=== PATIENT | female | born 1945 | race Caucasian/White ===

== ENCOUNTER 2018-06-21 12:55 | Inpatient (IN) ==
--- NOTE | 2018-06-21 13:21 | Emergency Department Note ---
Disposition Clinical Impression: Pleural effusion Altered mental status Qualifiers: Altered mental status type: unspecified Qualified Code(s): R41.82 - Altered mental status, unspecified Disposition: Admitted As Inpatient Condition: Fair Referrals: Barney Urena MD [Primary Care Provider] - Forms: ED Satisfaction Letter Time of Disposition: 14:44 General Adult HPI - General Chief complaint: ED Altered Mental Status Stated complaint: AMS/unresponsive Time Seen by Provider: 06/21/18 12:58 Source: EMS Mode of arrival: EMS Limitations: altered mental status Nursing Notes Reviewed: Yes Vital Signs Reviewed: Yes - History of Present Illness HPI Narrative: 72-year-old female with significant past medical history of AV fistula to the right arm and kidney transplant presenting to the emergency Department chief complaint of altered mental status. According to EMS patient is normally much more interactive. They picked her up from a intermediate facility. Nurse on that day stated that she has been altered since this morning. Unknown if she was altered last evening. Patient only responsive to pain in the room. Unable to provide any history of present illness. Pain Scale: 0 - Related Data Home Medications Medication Instructions Recorded Confirmed Aspirin 81 mg PO DAILY 09/13/15 05/12/18 Cyclosporine, Modified [Neoral] 100 mg PO BID 09/13/15 05/12/18 Metoprolol [Lopressor] 50 mg PO BID 09/13/15 05/12/18 Simvastatin [Zocor] 40 mg PO HS 09/13/15 05/12/18 Sirolimus [Rapamune] 1 mg PO DAILY 09/13/15 05/12/18 ALPRAZolam [Xanax 0.5 MG Tablet] 0.5 mg PO DAILY 04/28/18 05/12/18 Doxepin HCl 100 mg PO HS 04/28/18 05/12/18 Escitalopram [Lexapro] 20 mg PO DAILY 04/28/18 05/12/18 Nicotine Patch [Nicoderm] 21 mg TD DAILY 04/28/18 05/12/18 Trazodone HCl 200 mg PO HS 04/28/18 05/12/18 Previous Rx's Medication Instructions Recorded Amoxicillin/Clavulanate [Augmentin] 500 mg PO BIDWM #14 tablet 05/12/18 Allergies Allergy/AdvReac Type Severity Reaction Status Date / Time No Known Allergies Allergy Verified 05/12/18 08:29 Limitations: ROS unobtainable due to patients medical condition Past Medical History - Past Medical History Medical history: Reports: COPD, hyperlipidemia, hypertension, renal disease, thyroid disease, other Surgical history: Reports: transplant Psychiatric history: Reports: anxiety, bipolar, depression COP BREAKER history: Reports: no COP BREAKER history - Social History Smoking Status: Current every day smoker Smokeless Tobacco Status: No Alcohol use: Reports: none Drug use: Reports: none Physical Exam - General Limitations: altered mental status General appearance: obtunded - Head Head exam: atraumatic, normocephalic, normal inspection - Eye Eye exam: Present: PERRL. Absent: scleral icterus, conjunctival injection - ENT ENT exam: mucous membranes dry - Neck Neck exam: Present: normal inspection, trachea midline - Chest Chest inspection: Present: normal inspection, symmetric chest wall rise. Absent : rash - Respiratory Respiratory exam: Present: other (decreased breath sounds bilaterally) - Cardiovascular Cardiovascular exam: Present: regular rate, normal rhythm, normal heart sounds - Abdominal Exam Abdominal exam: Present: distention. Absent: guarding, rebound, rigidity - Extremities Exam Extremities exam: Present: other (2+ pitting edema bilateral lower extremities) - Skin Skin exam: Present: dry Course Course Narrative: 72-year-old female presenting for altered mental status. Patient only responsive to pain. Concern for sepsis, intracranial abnormality, abdominal abnormality. Patient afebrile on exam. Patient's abdomen on exam is slightly distended. Patient unable to provide any information. We will perform CT of the head, chest, abdomen and pelvis. We will perform basic laboratory analysis including UA and blood cultures. Patient is stable at this time. Vital signs stable. Disposition most likely admission but pending results. - Reevaluation(s) Reevaluation #1: Patient's laboratory analysis shows mild hyponatremia otherwise at baseline. Her CT of the chest shows bilateral large pleural effusions. Also anasarca. This is consistent with physical exam is patient has 2+ pitting edema bilateral lower extremities. We will provide the patient with 40 mg Lasix at this time and plan to admit her for her bilateral pleural effusions and altered mental status. I spoke with the hospitalist on-call Aleksey Puentes who agrees to accept the patient at this time. Vital Signs Temperature 98 F 06/21/18 13:07 Pulse Rate 73 06/21/18 13:07 Respiratory Rate 18 06/21/18 13:07 Blood Pressure 112/61 06/21/18 13:07 O2 Sat by Pulse Oximetry 98 06/21/18 13:07 Temperature 98 F 06/21/18 13:07 Pulse Rate 73 06/21/18 13:07 Respiratory Rate 18 06/21/18 13:07 Blood Pressure 112/61 06/21/18 13:07 O2 Sat by Pulse Oximetry 98 06/21/18 13:20 Oxygen Delivery Oxygen Delivery Room Air Medical Decision Making - Lab Data Result diagrams: 06/21/18 13:11 06/21/18 13:11 Lab Results 06/21/18 06/21/18 06/21/18 Range/Units 13:11 13:11 13:11 WBC 5.6 (4.3-11.1) K/mcL RBC 3.62 L (3.82-4.97) M/mcL Hgb 10.7 L (11.5-15.4) g/dL Hct 35.9 (35.3-44.9) % MCV 99.2 (83.0-100.0) fL MCH 29.6 (28.0-33.3) pg MCHC 29.8 L (31.6-35.5) g/dL RDW 17.9 H (11.5-14.5) % Plt Count 241 (140-400) K/mcL MPV 11.0 (9.4-12.4) fL Immature Gran % 2.9 (0-4) % Seg Neutrophils % 84.3 % Lymphocytes % 3.4 % Monocytes % 7.9 % Eosinophils % 1.1 % Basophils % 0.4 % Neutrophils # 4.7 (1.6-8.9) K/mcL Lymphocytes # 0.2 L (0.6-4.6) K/mcL Monocytes # 0.4 (0.0-1.3) K/mcL Eosinophils # 0.1 (0.0-0.6) K/mcL Basophils # 0.0 (0.0-0.2) K/mcL Platelet Estimate Normal (Normal) Basophilic Stippling 1+ A (Not Present) Anisocytosis 1+ A (Not Present) PT 10.6 (9.4-12.1) Seconds INR 0.9 APTT 31.9 (26.0-36.0) Seconds Sodium 131 L (136-145) mEq/L Potassium 4.7 (3.5-5.1) mEq/L Chloride 97 L (98-107) mEq/L Carbon Dioxide 29 (23-29) mEq/L BUN 25 H (8-23) mg/dL Creatinine 1.38 H (0.60-1.20) mg/dL Est GFR ( Amer) 46 L (> 60) Est GFR (Non-Af Amer) 38 L (> 60) BUN/Creatinine Ratio 18 (6-26) Glucose 102 (70-105) mg/dL Calculated Osmolality 277 L (280-300) Lactic Acid (0.5-2.2) mmol/L Calcium 8.6 (8.6-10.3) mg/dL Magnesium 1.8 (1.6-2.6) mg/dL Total Bilirubin 0.6 (0.3-1.0) mg/dL Direct Bilirubin 0.2 (0.0-0.2) mg/dL Indirect Bilirubin 0.4 (0.0-1.2) mg/dL AST 15 (13-39) Units/L ALT 14 (7-52) Units/L Alkaline Phosphatase 122 H (34-104) Units/L Troponin I < 0.03 (< 0.04) ng/mL Serum Total Protein 5.5 L (6.4-8.9) g/dL Albumin 2.9 L (3.5-5.7) g/dL Globulin 2.6 (2.4-3.5) g/dL Albumin/Globulin Ratio 1.1 (1.1-2.2) Urine Color (Yellow) Urine Clarity (Clear) Urine pH (5.0-8.0) pH Units Ur Specific [place] (1.010-1.025) Urine Protein (Neg-Trace) mg/dL Urine Glucose (UA) (Normal) mg/dL Urine Ketones (Negative) mg/dL Urine Blood (Negative) Urine Nitrite (Negative) Urine Bilirubin (Negative) Urine Urobilinogen (Normal) mg/dL Ur Leukocyte Esterase (Negative) Urine Microscopic RBC (0-3) per hpf Urine Microscopic WBC (0-3) per hpf Ur Squamous Epith Cells (None-Few) per lpf Urine Bacteria (None-Few) per hpf Ur Culture Indicated? (NO) 06/21/18 06/21/18 Range/Units 13:11 13:16 WBC (4.3-11.1) K/mcL RBC (3.82-4.97) M/mcL Hgb (11.5-15.4) g/dL Hct (35.3-44.9) % MCV (83.0-100.0) fL MCH (28.0-33.3) pg MCHC (31.6-35.5) g/dL RDW (11.5-14.5) % Plt Count (140-400) K/mcL MPV (9.4-12.4) fL Immature Gran % (0-4) % Seg Neutrophils % % Lymphocytes % % Monocytes % % Eosinophils % % Basophils % % Neutrophils # (1.6-8.9) K/mcL Lymphocytes # (0.6-4.6) K/mcL Monocytes # (0.0-1.3) K/mcL Eosinophils # (0.0-0.6) K/mcL Basophils # (0.0-0.2) K/mcL Platelet Estimate (Normal) Basophilic Stippling (Not Present) Anisocytosis (Not Present) PT (9.4-12.1) Seconds INR APTT (26.0-36.0) Seconds Sodium (136-145) mEq/L Potassium (3.5-5.1) mEq/L Chloride (98-107) mEq/L Carbon Dioxide (23-29) mEq/L BUN (8-23) mg/dL Creatinine (0.60-1.20) mg/dL Est GFR ( Amer) (> 60) Est GFR (Non-Af Amer) (> 60) BUN/Creatinine Ratio (6-26) Glucose (70-105) mg/dL Calculated Osmolality (280-300) Lactic Acid 0.5 (0.5-2.2) mmol/L Calcium (8.6-10.3) mg/dL Magnesium (1.6-2.6) mg/dL Total Bilirubin (0.3-1.0) mg/dL Direct Bilirubin (0.0-0.2) mg/dL Indirect Bilirubin (0.0-1.2) mg/dL AST (13-39) Units/L ALT (7-52) Units/L Alkaline Phosphatase (34-104) Units/L Troponin I (< 0.04) ng/mL Serum Total Protein (6.4-8.9) g/dL Albumin (3.5-5.7) g/dL Globulin (2.4-3.5) g/dL Albumin/Globulin Ratio (1.1-2.2) Urine Color Yellow (Yellow) Urine Clarity Cloudy A (Clear) Urine pH 5.0 (5.0-8.0) pH Units Ur Specific [place] 1.025 (1.010-1.025) Urine Protein >=1000 H (Neg-Trace) mg/dL Urine Glucose (UA) Normal (Normal) mg/dL Urine Ketones Negative (Negative) mg/dL Urine Blood Negative (Negative) Urine Nitrite Negative (Negative) Urine Bilirubin Small H (Negative) Urine Urobilinogen Normal (Normal) mg/dL Ur Leukocyte Esterase Negative (Negative) Urine Microscopic RBC 0-3 (0-3) per hpf Urine Microscopic WBC 3-5 H (0-3) per hpf Ur Squamous Epith Cells Many H (None-Few) per lpf Urine Bacteria None Seen (None-Few) per hpf Ur Culture Indicated? NO (NO) - EKG Data EKG #1 EKG attestation: Yes I reviewed and interpreted this EKG. EKG results narrative: Sinus rhythm. 73 beats for minute. WI interval 169, QRS 109, QTc 442. No signs of acute ST segment elevation or ischemia.
[2018-06-21 13:24] LABS: Bilirubin,Urine Small (Negative); Blood,Urine Negative (Negative); Clarity,Urine Cloudy (Clear); Color,Urine Yellow (Yellow); Glucose,Urine (UA) Normal (Normal); Ketones,Urine Negative (Negative); Leukocyte Esterase,Urine Negative (Negative); Nitrite,Urine Negative (Negative); Protein,Urine >=1000 mg/dL (Neg-Trace); Specific Gravity,Urine 1.025 (1.010-1.025); Urobilinogen,Urine Normal (Normal)
[2018-06-21 13:25] LABS: Basophils % 0.4 %; Eosinophils # 0.1 K/mcL (0.0-0.6); Eosinophils % 1.1 %; Hematocrit 35.9 % (35.3-44.9); Hemoglobin 10.7 g/dL (11.5-15.4); Immature Granulocytes % 2.9 % (0-4); Lymphocytes # 0.2 K/mcL (0.6-4.6); Lymphocytes % 3.4 %; Mean Corpuscular HGB Conc 29.8 g/dL (31.6-35.5); Mean Corpuscular Hemoglobin 29.6 pg (28.0-33.3); Mean Corpuscular Volume 99.2 fL (83.0-100.0); Monocytes # 0.4 K/mcL (0.0-1.3); Monocytes % 7.9 %; Neutrophils # 4.7 K/mcL (1.6-8.9); Platelet Count 241 K/mcL (140-400); Red Blood Count 3.62 M/mcL (3.82-4.97); Red Cell Distribution Width 17.9 % (11.5-14.5); Segmented Neutrophils % 84.3 %
[2018-06-21 13:26] LABS: Bacteria,Urine None Seen per hpf (None-Few); RBC,Urine 0-3 per hpf (0-3); Squamous Epithelial Cell,Urine Many per lpf (None-Few)
[2018-06-21 13:31] LABS: INR 0.9; Prothrombin Time 10.6 Seconds (9.4-12.1)
[2018-06-21 13:34] LABS: Activated Partial Thrombo Time 31.9 Seconds (26.0-36.0)
[2018-06-21 13:49] LABS: Alanine Aminotransferase 14 Units/L (7-52); Albumin 2.9 g/dL (3.5-5.7); Albumin/Globulin Ratio 1.1 (1.1-2.2); Alkaline Phosphatase 122 Units/L (34-104); Aspartate Amino Transferase 15 Units/L (13-39); BUN/Creatinine Ratio 18 (6-26); Bilirubin,Direct 0.2 mg/dL (0.0-0.2); Bilirubin,Indirect 0.4 mg/dL (0.0-1.2); Bilirubin,Total 0.6 mg/dL (0.3-1.0); Blood Urea Nitrogen 25 mg/dL (8-23); Calcium 8.6 mg/dL (8.6-10.3); Carbon Dioxide 29 mEq/L (23-29); Chloride 97 mEq/L (98-107); Globulin 2.6 g/dL (2.4-3.5); Glucose 102 mg/dL (70-105); Magnesium 1.8 mg/dL (1.6-2.6); Osmolality,Calculated 277 (280-300); Potassium 4.7 mEq/L (3.5-5.1); Sodium 131 mEq/L (136-145); Total Protein 5.5 g/dL (6.4-8.9); eGFR For Non-African Americans 38 (> 60)
[2018-06-21 13:51] LABS: Troponin I < 0.03 ng/mL (< 0.04)
[2018-06-21 14:08] LABS: Anisocytosis 1+ (Not Present)
[2018-06-21 14:09] LABS: Basophilic Stippling 1+ (Not Present); Platelet Estimate Normal (Normal)
[2018-06-21] MEDS ORDERED: Furosemide 40 MG/4 ML VIAL IVP ONE (14:42)
--- NOTE | 2018-06-21 15:06 | Emergency Department Note ---
Disposition Clinical Impression: Pleural effusion Altered mental status Qualifiers: Altered mental status type: unspecified Qualified Code(s): R41.82 - Altered mental status, unspecified Disposition: Admitted As Inpatient Condition: Fair Time of Disposition: 15:06 General Adult HPI - General Chief complaint: ED Altered Mental Status Stated complaint: AMS/unresponsive Time Seen by Provider: 06/21/18 12:58 Source: EMS Mode of arrival: EMS Limitations: altered mental status - History of Present Illness Pain Scale: 0 - Related Data Home Medications Medication Instructions Recorded Confirmed Aspirin 81 mg PO DAILY 09/13/15 05/12/18 Cyclosporine, Modified [Neoral] 100 mg PO BID 09/13/15 05/12/18 Metoprolol [Lopressor] 50 mg PO BID 09/13/15 05/12/18 Simvastatin [Zocor] 40 mg PO HS 09/13/15 05/12/18 Sirolimus [Rapamune] 1 mg PO DAILY 09/13/15 05/12/18 ALPRAZolam [Xanax 0.5 MG Tablet] 0.5 mg PO DAILY 04/28/18 05/12/18 Doxepin HCl 100 mg PO HS 04/28/18 05/12/18 Escitalopram [Lexapro] 20 mg PO DAILY 04/28/18 05/12/18 Nicotine Patch [Nicoderm] 21 mg TD DAILY 04/28/18 05/12/18 Trazodone HCl 200 mg PO HS 04/28/18 05/12/18 Previous Rx's Medication Instructions Recorded Amoxicillin/Clavulanate [Augmentin] 500 mg PO BIDWM #14 tablet 05/12/18 Allergies Allergy/AdvReac Type Severity Reaction Status Date / Time No Known Allergies Allergy Verified 05/12/18 08:29 Past Medical History - Past Medical History Medical history: Reports: COPD, hyperlipidemia, hypertension, renal disease, thyroid disease, other Surgical history: Reports: transplant Psychiatric history: Reports: anxiety, bipolar, depression BIOLOG[employer] INTERNSHIP history: Reports: no [employer] INTERNS[employer]IP history - Social History Smoking Status: Current every day smoker Smokeless Tobacco Status: No Alcohol use: Reports: none Drug use: Reports: none Physical Exam - General Limitations: altered mental status General appearance: obtunded Course Vital Signs Temperature 98 F 06/21/18 13:07 Pulse Rate 73 06/21/18 13:07 Respiratory Rate 18 06/21/18 13:07 Blood Pressure 112/61 06/21/18 13:07 O2 Sat by Pulse Oximetry 98 06/21/18 13:07 Temperature 98 F 06/21/18 13:07 Pulse Rate 76 06/21/18 14:57 Respiratory Rate 18 06/21/18 14:57 Blood Pressure 110/70 06/21/18 14:57 O2 Sat by Pulse Oximetry 99 06/21/18 14:57 Oxygen Delivery Oxygen Delivery Nasal Cannula Medical Decision Making - Lab Data Result diagrams: 06/21/18 13:11 06/21/18 13:11 Lab Results 06/21/18 06/21/18 06/21/18 Range/Units 13:11 13:11 13:11 WBC 5.6 (4.3-11.1) K/mcL RBC 3.62 L (3.82-4.97) M/mcL Hgb 10.7 L (11.5-15.4) g/dL Hct 35.9 (35.3-44.9) % MCV 99.2 (83.0-100.0) fL MCH 29.6 (28.0-33.3) pg MCHC 29.8 L (31.6-35.5) g/dL RDW 17.9 H (11.5-14.5) % Plt Count 241 (140-400) K/mcL MPV 11.0 (9.4-12.4) fL Immature Gran % 2.9 (0-4) % Seg Neutrophils % 84.3 % Lymphocytes % 3.4 % Monocytes % 7.9 % Eosinophils % 1.1 % Basophils % 0.4 % Neutrophils # 4.7 (1.6-8.9) K/mcL Lymphocytes # 0.2 L (0.6-4.6) K/mcL Monocytes # 0.4 (0.0-1.3) K/mcL Eosinophils # 0.1 (0.0-0.6) K/mcL Basophils # 0.0 (0.0-0.2) K/mcL Platelet Estimate Normal (Normal) Basophilic Stippling 1+ A (Not Present) Anisocytosis 1+ A (Not Present) PT 10.6 (9.4-12.1) Seconds INR 0.9 APTT 31.9 (26.0-36.0) Seconds Sodium 131 L (136-145) mEq/L Potassium 4.7 (3.5-5.1) mEq/L Chloride 97 L (98-107) mEq/L Carbon Dioxide 29 (23-29) mEq/L BUN 25 H (8-23) mg/dL Creatinine 1.38 H (0.60-1.20) mg/dL Est GFR ( Amer) 46 L (> 60) Est GFR (Non-Af Amer) 38 L (> 60) BUN/Creatinine Ratio 18 (6-26) Glucose 102 (70-105) mg/dL Calculated Osmolality 277 L (280-300) Lactic Acid (0.5-2.2) mmol/L Calcium 8.6 (8.6-10.3) mg/dL Magnesium 1.8 (1.6-2.6) mg/dL Total Bilirubin 0.6 (0.3-1.0) mg/dL Direct Bilirubin 0.2 (0.0-0.2) mg/dL Indirect Bilirubin 0.4 (0.0-1.2) mg/dL AST 15 (13-39) Units/L ALT 14 (7-52) Units/L Alkaline Phosphatase 122 H (34-104) Units/L Troponin I < 0.03 (< 0.04) ng/mL Serum Total Protein 5.5 L (6.4-8.9) g/dL Albumin 2.9 L (3.5-5.7) g/dL Globulin 2.6 (2.4-3.5) g/dL Albumin/Globulin Ratio 1.1 (1.1-2.2) Urine Color (Yellow) Urine Clarity (Clear) Urine pH (5.0-8.0) pH Units Ur Specific [place] (1.010-1.025) Urine Protein (Neg-Trace) mg/dL Urine Glucose (UA) (Normal) mg/dL Urine Ketones (Negative) mg/dL Urine Blood (Negative) Urine Nitrite (Negative) Urine Bilirubin (Negative) Urine Urobilinogen (Normal) mg/dL Ur Leukocyte Esterase (Negative) Urine Microscopic RBC (0-3) per hpf Urine Microscopic WBC (0-3) per hpf Ur Squamous Epith Cells (None-Few) per lpf Urine Bacteria (None-Few) per hpf Ur Culture Indicated? (NO) 06/21/18 06/21/18 Range/Units 13:11 13:16 WBC (4.3-11.1) K/mcL RBC (3.82-4.97) M/mcL Hgb (11.5-15.4) g/dL Hct (35.3-44.9) % MCV (83.0-100.0) fL MCH (28.0-33.3) pg MCHC (31.6-35.5) g/dL RDW (11.5-14.5) % Plt Count (140-400) K/mcL MPV (9.4-12.4) fL Immature Gran % (0-4) % Seg Neutrophils % % Lymphocytes % % Monocytes % % Eosinophils % % Basophils % % Neutrophils # (1.6-8.9) K/mcL Lymphocytes # (0.6-4.6) K/mcL Monocytes # (0.0-1.3) K/mcL Eosinophils # (0.0-0.6) K/mcL Basophils # (0.0-0.2) K/mcL Platelet Estimate (Normal) Basophilic Stippling (Not Present) Anisocytosis (Not Present) PT (9.4-12.1) Seconds INR APTT (26.0-36.0) Seconds Sodium (136-145) mEq/L Potassium (3.5-5.1) mEq/L Chloride (98-107) mEq/L Carbon Dioxide (23-29) mEq/L BUN (8-23) mg/dL Creatinine (0.60-1.20) mg/dL Est GFR ( Amer) (> 60) Est GFR (Non-Af Amer) (> 60) BUN/Creatinine Ratio (6-26) Glucose (70-105) mg/dL Calculated Osmolality (280-300) Lactic Acid 0.5 (0.5-2.2) mmol/L Calcium (8.6-10.3) mg/dL Magnesium (1.6-2.6) mg/dL Total Bilirubin (0.3-1.0) mg/dL Direct Bilirubin (0.0-0.2) mg/dL Indirect Bilirubin (0.0-1.2) mg/dL AST (13-39) Units/L ALT (7-52) Units/L Alkaline Phosphatase (34-104) Units/L Troponin I (< 0.04) ng/mL Serum Total Protein (6.4-8.9) g/dL Albumin (3.5-5.7) g/dL Globulin (2.4-3.5) g/dL Albumin/Globulin Ratio (1.1-2.2) Urine Color Yellow (Yellow) Urine Clarity Cloudy A (Clear) Urine pH 5.0 (5.0-8.0) pH Units Ur Specific [place] 1.025 (1.010-1.025) Urine Protein >=1000 H (Neg-Trace) mg/dL Urine Glucose (UA) Normal (Normal) mg/dL Urine Ketones Negative (Negative) mg/dL Urine Blood Negative (Negative) Urine Nitrite Negative (Negative) Urine Bilirubin Small H (Negative) Urine Urobilinogen Normal (Normal) mg/dL Ur Leukocyte Esterase Negative (Negative) Urine Microscopic RBC 0-3 (0-3) per hpf Urine Microscopic WBC 3-5 H (0-3) per hpf Ur Squamous Epith Cells Many H (None-Few) per lpf Urine Bacteria None Seen (None-Few) per hpf Ur Culture Indicated? NO (NO) Attestation Statement - Attestation Attestation: Interviewed and evaluated the patient on my examination and since the resident and declining evaluation. I agree with the treatment and disposition.
[2018-06-21] MEDS ORDERED: Naloxone 0.4 MG/ML INJ IVP PRN (18:24)
--- NOTE | 2018-06-21 18:50 | Internal Med History&Physical ---
<Ander Rueda - Last Filed: 06/21/18 20:15> Date of Encounter: 06/21/18 Time of Encounter: 17:30 Internal Medicine - H&P: HPI Chief complaint: AMS Admitted From: Emergency Dept Plans for Post Hospital Care: Home History of present illness: Ms. Begum is a 72 year old female w/PMH of COPD, HLD, HTN, and CKD, thyroid disease, anxiety, and bipolar depression presents in the ED with chief complaint of altered mental status. Patient is alone and altered on assessment and offers only very limited information with repeated attempts. Patient appears somnolent and hard to arouse. Patient is alert and oriented 0. Patient does state she is a resident of an ECF. Otherwise appears obtunded. Patient protecting airway and vital signs of 98.0F temp via axilla, 73 HR, 18 RR , 112/61 BP, and SPO2 98% on 3 L via nasal cannula. Pt. denies CP, SOB, headache , fall, blacking out, or striking head. Past Med Surg Social Fam HX - Past Medical History Source: old records reviewed Medical history: COPD, hyperlipidemia, hypertension, renal disease, thyroid disease, other Additional medical history: kidney transplant, malignant neoplasm upper lobe lung Psychiatric history: anxiety, bipolar, depression - Past Surgical History Surgical History: transplant - Social History Smoking Status: Current every day smoker Smokeless Tobacco Status: No Alcohol use: none Drug use: none Current living situation: [facility] Recent Out of Country Travel Within the Last 8 Weeks: No Exposure or Possible Exposure to Illness During Travel: No Internal Medicine - H&P: Meds Aspirin 81 mg PO DAILY 09/13/15 [History] Cyclosporine, Modified [Neoral] 100 mg PO BID 09/13/15 [History] ARIPiprazole [Abilify] 10 mg PO DAILY 06/21/18 [History] Doxepin HCl 100 mg PO HS 06/21/18 [History] Escitalopram [Lexapro] 20 mg PO DAILY 06/21/18 [History] Levothyroxine [Synthroid] 25 mcg PO 0630 06/21/18 [History] Pravastatin Sodium [Pravachol] 20 mg PO HS 06/21/18 [History] Sirolimus [Rapamune] 1 mg PO DAILY 06/21/18 [History] Sulfamethoxazole/Trimeth DS [Bactrim DS] 1 tab PO MOWEFR 06/21/18 [History] Trazodone HCl 300 mg PO HS 06/21/18 [History] amLODIPine [Norvasc] 5 mg PO DAILY 06/21/18 [History] hydrOXYzine HCl [Hydroxyzine HCl] 50 mg PO Q6H PRN 06/21/18 [History] 3 Allergy/AdvReac Type Severity Reaction Status Date / Time No Known Allergies Allergy Verified 05/12/18 08:29 ROS unobtainable: due to mental status All Systems PM: A 10-system review of systems was performed and is negative for pertinent findings except as documented above in the HPI. - Constitutional Vitals: Temp Pulse Resp BP Pulse Ox 97.4 F L 73 19 104/64 97 06/21/18 16:04 06/21/18 16:04 06/21/18 16:04 06/21/18 16:04 06/21/18 16:04 General appearance: Present: A&O X 0 - Head Head exam: Present: atraumatic, normocephalic - Eye Eye exam: Present: PERRL, conjuntiva pink, sclera anicteric Pupils: Present: PERRL - ENT ENT exam: Present: normal exam - Neck Neck exam general surgery: Present: normal inspection, supple, trachea midline. Absent: lymphadenopathy - Respiratory Respiratory exam: Present: accessory muscle use, wheezes. Absent: rales, rhonchi - Cardiovascular Cardiovascular exam: Present: RRR, +S1, +S2. Absent: diastolic murmur, gallop, rubs, systolic murmur - GI/Abdominal GI/Abdominal exam: Present: normal bowel sounds, soft, no peritoneal signs. Absent: distended, tenderness - Rectal Rectal exam: Present: deferred - Additional comments: exam deferred. - Extremities Exam Extremities exam: Present: warm, radial pulses palpable and symmetrical. Absent : calf tenderness, cyanotic, pedal edema - Neurological Exam Neurological exam: Present: altered - Skin Skin exam: Present: dry, intact Internal Med - H&P Results - Labs CBC & Chem 7: 06/21/18 13:11 06/21/18 13:11 - Assessment and plan (1) Altered mental status Current Visit: Yes Status: Acute Assessment and plan: Acute AMS on admission. Pt. appears somnolent on exam and hard to arouse. Will open eyes briefly to give brief yes or no answer then returns to somnolence. Unclear if current sx are d/t medications, possible CVA, or infection process. CT of the head shows no acute intracranial abnormality, bilateral mastoid effusions, and age-related changes including chronic small vessel ischemic disease and cerebral atrophy. Pt. has hx of alcoholism and previous documents state she was 14 years sober. Blood alcohol level ordered. Urine tox screen ordered. NPO status. Dysphagia screen when A&O. Hold PO medications until mentation changes. Blood cultures x2 ordered. ABG ordered stat. MRI of head/ brain ordered to r/o CVA. BG ordered. Continuous cardiac monitoring. Supplemental O2 with titration and SPO2 monitoring. Pt. is resident of [facility] so concern for HCAP d/t LLL consolidation on CXR. U/A not indicative for UTI. Legionella and strep pneumoniae antigens ordered. IVPB Zosyn and vancomycin ordered for HCAP infection coverage with renal dosing per pharmacy. Monitor pt. and f/u labs. Pt. discussed w/Dr. Puentes who agrees w/plan of care. Pt. is high risk for further morbidity based on AMS of unknown etiology, A&O x0 status , possible infection status from HCAP according to imaging, hx, and risk factors. Observation. Qualifiers: Altered mental status type: somnolence Qualified Code(s): R40.0 - Somnolence (2) Pleural effusion Current Visit: Yes Status: Acute Assessment and plan: Acute and large bilateral pleural effusions with adjacent compressive atelectasis as seen on CTA of chest today. Groundglass opacities in the aerated right lung are favored to represent sequela of edema rather than infection. Pt. given 40 mg IVP lasix in ED. Will follow w/three more doses IVP 40 mg lasix (one tomorrow in a.m. and one in p.m. followed by one dose Tuesday if warranted). Supplemental O2 with titration and SPO2 monitoring. (3) SOB (shortness of breath) Current Visit: Yes Status: Acute Assessment and plan: Acute SOB on exam as determined by accessory muscle use. Latest VS: Temp of 98.7F, HR of 86, RR of 15, BP 118/75, SPO2 94% on RA. Stat ABG ordered. Supplemental O2 w/titration and SpO2 monitoring. Monitor closely. (4) HTN (hypertension) Current Visit: Yes Status: Chronic Assessment and plan: Hx of chronic HTN. Monitor pt. and VS. Hold PO medications and order Hydralazine IVP PRN w/parameters if warranted. Currently, pt. is hypotensive. Monitor. Qualifiers: Hypertension type: essential hypertension Qualified Code(s): I10 - Essential (primary) hypertension (5) HLD (hyperlipidemia) Current Visit: Yes Status: Chronic Assessment and plan: Hx of chronic HLD. Lipid panel in a.m. labs. Hold statin d/t current AMS and NPO status. Continue when pt. A&O. Qualifiers: Hyperlipidemia type: pure hypercholesterolemia Qualified Code(s): E78.00 - Pure hypercholesterolemia, unspecified; E78.0 - Pure hypercholesterolemia (6) CKD (chronic kidney disease) stage 3, GFR 30-59 ml/min Current Visit: Yes Status: Chronic Assessment and plan: Hx of CKD. Currently stage 3 w/creatinine of 1.38 and GFR of 38. Will use IV fluids judiciously d/t current pleural effusions and avoid nephrotoxins. Pt. given 40 mg IVP lasix in ED. (7) Thyroid disease Current Visit: Yes Status: Chronic Assessment and plan: Hx of chronic thyroid disease. TSH and Free T4 in a.m. labs. Will hold pts. Synthroid d/t AMS and NPO status. 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 She has a history of renal transplant. This lung cancer was found incidentally on imaging PET/CT. Pt. currently being followed by Oncology. F/u as OP. Qualifiers: Laterality: left Lung location: upper lobe of lung Qualified Code(s): C34.12 - Malignant neoplasm of upper lobe, left bronchus or lung (9) DVT prophylaxis Current Visit: Yes Status: Acute Assessment and plan: Bilateral SCDs on LEs for DVT prophylaxis. - Time Spent With Patient Total time spent is greater than 50% in coordination of care (as documented) at patient's floor/unit and/or counseling patient: 25 - 35 minutes <Mario Puentes M - Last Filed: 06/23/18 12:56> Date of Encounter: 06/21/18 Internal Medicine - H&P: HPI History of present illness: Ms. Begum is a 72 year old female All Systems PM: A 10-system review of systems was performed and is negative for pertinent findings except as documented above in the HPI. - Constitutional Vitals: Temp Pulse Resp BP Pulse Ox 98.3 F 86 17 119/69 96 06/23/18 11:53 06/23/18 11:53 06/23/18 11:53 06/23/18 11:53 06/23/18 11:53 Internal Med - H&P Results - Labs CBC & Chem 7: 06/23/18 05:02 06/23/18 05:02 Labs: Short CBC 06/23/18 Range/Units 05:02 WBC 5.8 D (4.3-11.1) K/mcL Hgb 10.2 L (11.5-15.4) g/dL Hct 32.7 L (35.3-44.9) % Plt Count 291 (140-400) K/mcL Neutrophils # 4.8 (1.6-8.9) K/mcL BMP 06/23/18 05:02 Sodium 132 L Potassium 4.3 Chloride 101 Carbon Dioxide 25 BUN 36 H Creatinine 1.69 H Glucose 116 H Calcium 7.9 L Liver Function 06/23/18 Range/Units 05:02 Total Bilirubin 0.6 (0.3-1.0) mg/dL AST 14 (13-39) Units/L ALT 11 (7-52) Units/L Alkaline Phosphatase 113 H (34-104) Units/L Albumin 2.7 L (3.5-5.7) g/dL - Impressions ITS Impressions Chest X-Ray 06/23/18 10:18 IMPRESSION: Improved aeration at the right base with no pneumothorax following thoracentesis. D/ / Iban Gleason MD / Iban Gleason MD Interpreting Provider: Iban Gleason MD - Attending Attestation I SAW/EXAMINED AND EVALUATED THE PATIENT WITH THE MANAGER CASH/PA/ ON THE DAY OF ADMISSION. THE CASE WAS DISCUSSED WITH HIM/HER. I AGREE WITH THE FINDINGS/PLAN , DOCUMENTED IN THE MANAGER CASH/PA'S H&P. THE DOCUMENT WAS EDITED BY ME TO CORRECT ERRORS AND ADD MISSING DATA. - Assessment and plan (1) Lung cancer Current Visit: Yes Status: Chronic Qualifiers: Laterality: left Lung location: upper lobe of lung Qualified Code(s): C34.12 - Malignant neoplasm of upper lobe, left bronchus or lung (2) Altered mental status Current Visit: Yes Status: Acute Qualifiers: Altered mental status type: somnolence Qualified Code(s): R40.0 - Somnolence (3) Pleural effusion Current Visit: Yes Status: Acute (4) HTN (hypertension) Current Visit: Yes Status: Chronic Qualifiers: Hypertension type: essential hypertension Qualified Code(s): I10 - Essential (primary) hypertension (5) HLD (hyperlipidemia) Current Visit: Yes Status: Chronic Qualifiers: Hyperlipidemia type: pure hypercholesterolemia Qualified Code(s): E78.00 - Pure hypercholesterolemia, unspecified; E78.0 - Pure hypercholesterolemia (6) Thyroid disease Current Visit: Yes Status: Chronic (7) Pneumonia Current Visit: Yes Status: Acute Qualifiers: Pneumonia type: due to unspecified organism Laterality: left Lung location: lower lobe of lung Qualified Code(s): J18.1 - Lobar pneumonia, unspecified organism (8) Transplanted kidney Current Visit: Yes Status: Acute - Time Spent With Patient Total time spent is greater than 50% in coordination of care (as documented) at patient's floor/unit and/or counseling patient:
[2018-06-21 19:43] LABS: Ethanol < 10 mg/dL (Less than 10)
[2018-06-21 20:06] LABS: Thyroid Stimulating Hormone 10.733 mcIU/mL (0.340-5.600)
[2018-06-21 20:43] LABS: ABG Base Excess 2 mEq/L (-2 to 3); ABG HCO3 31 mEq/L (21-27); ABG Oxygen Saturation 93 % (95-98); ABG PCO2 75 mmHg (35-45); ABG PH 7.22 pH Units (7.32-7.45); ABG PO2 82 mmHg (85-104); ABG TCO2 33 mEq/L (20-26)
[2018-06-21] MEDS ORDERED: methylPREDNISolone 125 MG/2 ML VIAL IVP ONE (21:00)
[2018-06-21] MEDS: Ipratropium/Albuterol Neb 3 ML IH SCH (21:15)
[2018-06-21] MEDS ORDERED: *HR* LORazepam 2 MG/ML VIAL IVP ONE (23:57)
[2018-06-21] MEDS: Piperacillin/Tazobactam 3.375 GM in 0.9 % Sodium Chloride Mini Bag 100 ML IVPB SCH (23:58)
[2018-06-22] MEDS: Ipratropium/Albuterol Neb 3 ML IH SCH ×6 (00:02→20:33)
[2018-06-22 04:17] LABS: ABG Base Excess 1 mEq/L (-2 to 3); ABG HCO3 28 mEq/L (21-27); ABG Oxygen Saturation 88 % (95-98); ABG PCO2 53 mmHg (35-45); ABG PH 7.34 pH Units (7.32-7.45); ABG PO2 59 mmHg (85-104); ABG TCO2 30 mEq/L (20-26); Blood Gas Respiration Rate 12
[2018-06-22 06:58] LABS: Basophils % 0.3 %; Hematocrit 33.7 % (35.3-44.9); Hemoglobin 10.4 g/dL (11.5-15.4); Immature Granulocytes % 2.1 % (0-4); Lymphocytes # 0.1 K/mcL (0.6-4.6); Lymphocytes % 1.8 %; Mean Corpuscular HGB Conc 30.9 g/dL (31.6-35.5); Mean Corpuscular Hemoglobin 30.6 pg (28.0-33.3); Mean Corpuscular Volume 99.1 fL (83.0-100.0); Mean Platelet Volume 11.7 fL (9.4-12.4); Monocytes % 0.9 %; Neutrophils # 3.1 K/mcL (1.6-8.9); Platelet Count 246 K/mcL (140-400); Red Cell Distribution Width 17.9 % (11.5-14.5); Segmented Neutrophils % 94.9 %
[2018-06-22 07:10] LABS: Prothrombin Time 10.7 Seconds (9.4-12.1)
[2018-06-22 07:13] LABS: Activated Partial Thrombo Time 25.8 Seconds (26.0-36.0)
[2018-06-22 07:15] LABS: Albumin 2.7 g/dL (3.5-5.7); Albumin/Globulin Ratio 1.2 (1.1-2.2); Bilirubin,Total 0.6 mg/dL (0.3-1.0); Calcium 8.2 mg/dL (8.6-10.3); Globulin 2.3 g/dL (2.4-3.5); Potassium 4.8 mEq/L (3.5-5.1)
[2018-06-22 07:16] LABS: Chol/HDL Ratio 2.8 (0-4.9)
[2018-06-22 07:47] LABS: Estimated Average Glucose 85 mg/dl; Hemoglobin A1C 4.6 %
[2018-06-22] MEDS ORDERED: MethylPREDNISolone 40 MG/ML VIAL IVP ONE (08:00)
[2018-06-22 08:20] LABS: Platelet Estimate Normal (Normal)
[2018-06-22] MEDS: Piperacillin/Tazobactam 3.375 GM in 0.9 % Sodium Chloride Mini Bag 100 ML IVPB SCH ×3 (09:04→23:18)
[2018-06-22 10:26] LABS: Amphetamine Screen,Urine Negative ng/mL (Cutoff=1000); Barbiturate Screen,Urine Negative ng/mL (Cutoff=200); Benzodiazepines Screen,Urine Negative ng/mL (Cutoff=200); Cannabinoid Screen,Urine Negative ng/mL (Cutoff = 50); Cocaine Screen,Urine Negative ng/mL (Cutoff= 300); Opiate Screen,Urine Negative ng/mL (Cutoff=300); Phencyclidine Screen,Urine Negative ng/mL (Cutoff=25)
--- NOTE | 2018-06-22 10:43 | Internal Med Progress Note ---
<DaliaAlexander S - Last Filed: 06/22/18 13:25> Hospitalist Progress Note - Encounter Date of Encounter: 06/22/18 Time of Encounter: 09:00 - Subjective Interval History: 72 year old female with PMHx of kidney disease s/p kidney transplant + lung adenocarcinoma s/p excision + COPD not on home O2 + HTN + HLD + bipolar + depression present from SNF with AMS. Patient obtunded in ED with suspicion for sepsis. CXR showed LLL opacity. Chest CT showed bilateral pleural effusions. Patient given IV lasix and admitted for bilateral pleural effusion and AMS. This AM, patient is alert but drowsy. She is on BIPAP 32 LPM. Patient knew who she was and the year, but she didn't know which hospital she was in. Patient admits to shortness of breath. She denies chest pain. Patient states she is a former smoker but not on home oxygen. She states she had a kidney transplant 7 years ago due to thrombocytopenia. Further history was difficult to obtain due to drowsiness. - Exam Vitals: Temp Pulse Resp BP Pulse Ox 98.3 F 89 17 135/78 91 06/22/18 07:13 06/22/18 07:13 06/22/18 07:30 06/22/18 07:13 06/22/18 07:30 Exam: Gen: Moderately distressed on BIPAP. A&O x2 Heart: RRR Lungs: Decreased breath sounds bilaterally Abdomen: distended, non-tender, no organomegaly Genitourinary: ivan in place, no adams blood in urine Extremities: pitting edema to knees, neurovascularly intact, strength 5/5 in UE and LE Neuro: CN intact, no focal deficits - Assessment and Plan (1) Altered mental status Current Visit: Yes Status: Acute Assessment and Plan: Patient improved from yesterday A&O x2 Will resume renal diet at lunch MRI showed severe bilateral mastoid effusions (2) Pleural effusion Current Visit: Yes Status: Acute Assessment and Plan: Patient given 40 mg lasix in ED With concomitant LE pitting edema and distended abdomen Patient currently on 3L NC Will hold lasix for now as effusion is likely renal etiology UA showed proteinuria >1000 Nephrology on consult (3) CKD (chronic kidney disease) stage 3, GFR 30-59 ml/min Current Visit: Yes Status: Chronic Assessment and Plan: Nephrology on consult 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 Susan Lyons 2 months ago - oncology (5) HTN (hypertension) Current Visit: Yes Status: Chronic Assessment and Plan: Continue home amlodipine BP 135/78 today (6) HLD (hyperlipidemia) Current Visit: Yes Status: Chronic Assessment and Plan: Continue home simvastatin (7) Thyroid disease Current Visit: Yes Status: Chronic Assessment and Plan: Continue synthroid TSH is 10.7, Free T4 is 0.81 (8) Pneumonia Current Visit: Yes Status: Acute Assessment and Plan: LLL opacity on CXR Patient on zosyn and vancomycin - concern for HCAP 2/2 SNF placement Patient on 3L NC saturating at 96% Can use BIPAP at night if needed DVT Prophylaxis: Subcutaneous heparin 5000 units - Time Spent with Patient Total time spent is greater than 50% in coordination of care (as documented) at patient's floor/unit and/or counseling patient: 25 - 35 minutes Plan of Care Discussed with: patient Internal Medicine: Result - Labs CBC & Chem 7: 06/22/18 06:32 06/22/18 06:32 Labs: Short CBC 06/22/18 Range/Units 06:32 WBC 3.3 L (4.3-11.1) K/mcL Hgb 10.4 L (11.5-15.4) g/dL Hct 33.7 L (35.3-44.9) % Plt Count 246 (140-400) K/mcL Neutrophils # 3.1 (1.6-8.9) K/mcL BMP 06/22/18 06:32 Sodium 132 L Potassium 4.8 Chloride 99 Carbon Dioxide 24 BUN 29 H Creatinine 1.49 H Glucose 108 H Calcium 8.2 L Liver Function 06/22/18 Range/Units 06:32 Total Bilirubin 0.6 (0.3-1.0) mg/dL AST 14 (13-39) Units/L ALT 12 (7-52) Units/L Alkaline Phosphatase 113 H (34-104) Units/L Albumin 2.7 L (3.5-5.7) g/dL - ABG Interpretation ABG results: ABG ABG pH 7.34 pH Units (7.32-7.45) 06/22/18 04:12 ABG pCO2 53 mmHg (35-45) H 06/22/18 04:12 ABG pO2 59 mmHg (85-104) L 06/22/18 04:12 ABG O2 Saturation 88 % (95-98) L 06/22/18 04:12 PT/INR, D-dimer PT 10.7 Seconds (9.4-12.1) 06/22/18 06:32 - Impressions Impressions Brain MRI 06/21/18 18:27 IMPRESSION: No acute intracranial abnormality. Severe bilateral mastoid effusions with opacified middle ears -correlate for otomastoiditis. D/ / Luis Lazaro MD / Luis Lazaro MD Interpreting Provider: Luis Lazaro MD Consult Discharge Plan - Plan Referrals: Barney Urena MD [Primary Care Provider] - <Stefania Noriega - Last Filed: 06/22/18 15:42> Hospitalist Progress Note - Encounter Date of Encounter: 06/22/18 - Exam Vitals: Temp Pulse Resp BP Pulse Ox 97.7 F 90 20 132/78 92 06/22/18 15:27 06/22/18 15:27 06/22/18 15:27 06/22/18 15:27 06/22/18 15:27 - Assessment and Plan (1) Lung cancer Current Visit: Yes Status: Chronic (2) Altered mental status Current Visit: Yes Status: Acute (3) Pleural effusion Current Visit: Yes Status: Acute (4) HTN (hypertension) Current Visit: Yes Status: Chronic (5) HLD (hyperlipidemia) Current Visit: Yes Status: Chronic (6) CKD (chronic kidney disease) stage 3, GFR 30-59 ml/min Current Visit: Yes Status: Chronic (7) Thyroid disease Current Visit: Yes Status: Chronic (8) Pneumonia Current Visit: Yes Status: Acute - Time Spent with Patient Total time spent is greater than 50% in coordination of care (as documented) at patient's floor/unit and/or counseling patient: Internal Medicine: Result - Labs CBC & Chem 7: 06/22/18 06:32 06/22/18 06:32 Labs: Short CBC 06/22/18 Range/Units 06:32 WBC 3.3 L (4.3-11.1) K/mcL Hgb 10.4 L (11.5-15.4) g/dL Hct 33.7 L (35.3-44.9) % Plt Count 246 (140-400) K/mcL Neutrophils # 3.1 (1.6-8.9) K/mcL BMP 06/22/18 06:32 Sodium 132 L Potassium 4.8 Chloride 99 Carbon Dioxide 24 BUN 29 H Creatinine 1.49 H Glucose 108 H Calcium 8.2 L Liver Function 06/22/18 Range/Units 06:32 Total Bilirubin 0.6 (0.3-1.0) mg/dL AST 14 (13-39) Units/L ALT 12 (7-52) Units/L Alkaline Phosphatase 113 H (34-104) Units/L Albumin 2.7 L (3.5-5.7) g/dL - ABG Interpretation ABG results: ABG ABG pH 7.34 pH Units (7.32-7.45) 06/22/18 04:12 ABG pCO2 53 mmHg (35-45) H 06/22/18 04:12 ABG pO2 59 mmHg (85-104) L 06/22/18 04:12 ABG O2 Saturation 88 % (95-98) L 06/22/18 04:12 PT/INR, D-dimer PT 10.7 Seconds (9.4-12.1) 06/22/18 06:32 - Impressions Impressions Brain MRI 06/21/18 18:27 IMPRESSION: No acute intracranial abnormality. Severe bilateral mastoid effusions with opacified middle ears -correlate for otomastoiditis. D/ / Luis Lazaro MD / Luis Lazaro MD Interpreting Provider: Luis Lazaro MD - Attending Attestation I have seen and examined this patient independently. I have discussed with resident physician Dr. Gómez regarding the management plan. Agree with the documentation. <Alexander Gómez - Last Filed: 06/22/18 13:25> (1) Altered mental status Qualifiers: Altered mental status type: somnolence Qualified Code(s): R40.0 - Somnolence (4) Lung cancer Qualifiers: Laterality: left Lung location: upper lobe of lung Qualified Code(s): C34.12 - Malignant neoplasm of upper lobe, left bronchus or lung (5) HTN (hypertension) Qualifiers: Hypertension type: essential hypertension Qualified Code(s): I10 - Essential (primary) hypertension (6) HLD (hyperlipidemia) Qualifiers: Hyperlipidemia type: pure hypercholesterolemia Qualified Code(s): E78.00 - Pure hypercholesterolemia, unspecified; E78.0 - Pure hypercholesterolemia (8) Pneumonia Qualifiers: Pneumonia type: due to unspecified organism Laterality: left Lung location: lower lobe of lung Qualified Code(s): J18.1 - Lobar pneumonia, unspecified organism <Stefania Noriega - Last Filed: 06/22/18 15:42> (1) Lung cancer Qualifiers: Laterality: left Lung location: upper lobe of lung Qualified Code(s): C34.12 - Malignant neoplasm of upper lobe, left bronchus or lung (2) Altered mental status Qualifiers: Altered mental status type: somnolence Qualified Code(s): R40.0 - Somnolence (4) HTN (hypertension) Qualifiers: Hypertension type: essential hypertension Qualified Code(s): I10 - Essential (primary) hypertension (5) HLD (hyperlipidemia) Qualifiers: Hyperlipidemia type: pure hypercholesterolemia Qualified Code(s): E78.00 - Pure hypercholesterolemia, unspecified; E78.0 - Pure hypercholesterolemia (8) Pneumonia Qualifiers: Pneumonia type: due to unspecified organism Laterality: left Lung location: lower lobe of lung Qualified Code(s): J18.1 - Lobar pneumonia, unspecified organism
[2018-06-22] MEDS ORDERED: Aminoglycoside Consult 1 EACH MC ONE (12:58)
[2018-06-22] MEDS ORDERED: methylPREDNISolone 125 MG/2 ML VIAL IVP SCH (16:00)
[2018-06-22] MEDS: *HR* Heparin 5,000 UNIT/ML VIAL SQ SCH (17:43)
[2018-06-22] MEDS: hydrOXYzine pamoate 25 MG CAPSULE PO PRN (20:58)
[2018-06-22] MEDS: CycloSPORINE (SandIMMUNE) 100 MG CAPSULE PO SCH (22:07)
--- NOTE | 2018-06-23 01:42 | Nephrology Consult Note ---
Date of Encounter: 06/22/18 Time of Encounter: 17:45 Assessment and Plan (1) Transplanted kidney Current Visit: Yes Status: Acute Status post renal transplants with the transplant kidney in the right lower quadrant of the abdomen. Renal function appears to be overall relatively stable. She does have significant proteinuria so I will check the protein to creatinine ratio. As patient is improving I would continue her antirejection medications. I will check sirolimus levels. I also recommend caution with the use of vancomycin as acute kidney injury could be induced. As the patient is status post transplant she is an immunocompromised patient and I would recommend ID consult to assist with management and/or offering transfer to [facility] for continuity of care. (2) Altered mental status Current Visit: Yes Status: Acute Likely secondary to sepsis and/or hypercarbic respiratory failure. She was improved at the time my evaluation. Qualifiers: Altered mental status type: somnolence Qualified Code(s): R40.0 - Somnolence (3) Pneumonia Current Visit: Yes Status: Acute Revised per the primary team. Code she is immunocompromised patient I will recommend transfer for her to [facility] secondary to her having a renal transplant or at the very least an infectious disease consult. Qualifiers: Pneumonia type: due to unspecified organism Laterality: left Lung location: lower lobe of lung Qualified Code(s): J18.1 - Lobar pneumonia, unspecified organism (4) CKD (chronic kidney disease) stage 3, GFR 30-59 ml/min Current Visit: Yes Status: Chronic Patient with ESRD status post renal transplant and now with chronic kidney disease stage III renal function that is relatively stable. (5) HTN (hypertension) Current Visit: Yes Status: Chronic Blood pressures currently controlled. Qualifiers: Hypertension type: essential hypertension Qualified Code(s): I10 - Essential (primary) hypertension (6) Lung cancer Current Visit: Yes Status: Chronic Qualifiers: Laterality: left Lung location: upper lobe of lung Qualified Code(s): C34.12 - Malignant neoplasm of upper lobe, left bronchus or lung History of Present Illness - Reason for Consult Consult date: 06/22/18 Chronic Kidney Disease - Chief Complaint s/p transplant - History of Present Illness Mrs. Larios is a 72-year-old woman with a history of chronic kidney disease status post renal transplant who is followed by Dr. George. She presented with altered mental state and was diagnosed with pneumonia. She is managed with antibiotics and at the time my evaluation her mental status seems improved. She reports that she received her renal transplant from [facility] and the last visit to her transplant physician was in December of this year. She reports that she has been having lower from swelling and per her recollection known is given her the reason why. At the time my evaluation her breathing is improving and she denies chest pain. She also denies pain over her transplant site. Past Med Surg Social Fam HX - Past Medical History Medical history: COPD, hyperlipidemia, hypertension, renal disease, thyroid disease, other Additional medical history: kidney transplant, malignant neoplasm upper lobe lung Psychiatric history: anxiety, bipolar, depression - Past Surgical History Surgical History: transplant - Social History Smoking Status: Current every day smoker Smokeless Tobacco Status: No Alcohol use: none Drug use: none Medications and Allergies Aspirin 81 mg PO DAILY 09/13/15 [History] Cyclosporine, Modified [Neoral] 100 mg PO BID 09/13/15 [History] ARIPiprazole [Abilify] 10 mg PO DAILY 06/21/18 [History] Doxepin HCl 100 mg PO HS 06/21/18 [History] Escitalopram [Lexapro] 20 mg PO DAILY 06/21/18 [History] Levothyroxine [Synthroid] 25 mcg PO 0630 06/21/18 [History] Pravastatin Sodium [Pravachol] 20 mg PO HS 06/21/18 [History] Sirolimus [Rapamune] 1 mg PO DAILY 06/21/18 [History] Sulfamethoxazole/Trimeth DS [Bactrim DS] 1 tab PO MOWEFR 06/21/18 [History] Trazodone HCl 300 mg PO HS 06/21/18 [History] amLODIPine [Norvasc] 5 mg PO DAILY 06/21/18 [History] hydrOXYzine HCl [Hydroxyzine HCl] 50 mg PO Q6H PRN 06/21/18 [History] 3 Allergy/AdvReac Type Severity Reaction Status Date / Time No Known Allergies Allergy Verified 05/12/18 08:29 Review of Systems All Systems: reviewed and no additional remarkable complaints except as stated ( As documented in history of present illness.) Exam - Vital Signs Vital signs: Initial Vital Signs Temp Pulse Resp BP Pulse Ox 98 F 73 18 112/61 98 06/21/18 13:07 06/21/18 13:07 06/21/18 13:07 06/21/18 13:07 06/21/18 13:07 Vital Signs - Last 8 Hours Temp Pulse Resp BP Pulse Ox 06/23/18 00:00 16 96 06/22/18 23:36 98.6 F 90 18 133/83 94 06/22/18 20:33 17 86 Intake and Output 06/22/18 06/22/18 06/23/18 15:59 23:59 07:59 Intake Total 340 / 340 Output Total 300 / 300 Balance 40 / 40 Intake: IV Fluids 100 / 100 Zosyn 3.375 GM In 0.9 % Sodium 100 / 100 Chloride (Mini-Bag +) 100 ML @ 25 mls/hr IVPB Q8HR [facility] Rx#: [id number] Oral 240 / 240 Output: Catheter 300 / 300 Other: Meal Dinner Percent of Meal Consumed 0% - General Appearance General appearance: well-nourished EENT: ATNC Neck: supple Respiratory: rhonchi Cardiology: edema, regular rate, regular rhythm - Dialysis Access Dialysis Vascular Access: Arteriovenous Fistula thrill: Yes bruit: Yes Gastrointestinal: normoactive bowel sounds, no tenderness Additional Comments: Transplanted kidney in the right lower quadrant no tenderness to palpation and the surgical site is healed. Integumentary: warm and dry Neurologic: alert and oriented x3 Musculoskeletal: no cyanosis Psychiatric: mood/affect appropriate Results - Lab Results 06/22/18 06:32 06/22/18 06:32 Most recent lab results ABG pH 7.34 pH Units (7.32-7.45) 06/22/18 04:12 ABG pCO2 53 mmHg (35-45) H 06/22/18 04:12 ABG pO2 59 mmHg (85-104) L 06/22/18 04:12 ABG HCO3 28 mEq/L (21-27) H 06/22/18 04:12 ABG O2 Saturation 88 % (95-98) L 06/22/18 04:12 Calcium 8.2 mg/dL (8.6-10.3) L 06/22/18 06:32 Magnesium 1.8 mg/dL (1.6-2.6) 06/21/18 13:11 Consult Discharge Plan - Plan Referrals: Barney Urena MD [Primary Care Provider] -
--- NOTE | 2018-06-23 02:14 | Electrocardiograph Report ---
[address] [place] [address] Test Date: 2018-06-21 Pat Name: Bertha Begum Department: 112 Room: 2A Gender: F Senior Tax Specialist: LILIA : 1945 Requested By: [id number] Order Number: [id number] Reading MD: Julisa Butcher Measurements Intervals [place] Rate: 79 P: 69 FL: 200 QRS: 69 QRSD: 110 T: 64 QT: 400 QTc: 434 Interpretive Statements SINUS RHYTHM Electronically Signed On 06-22-2018 16:08:05 EDT by Julisa Butcher
--- NOTE | 2018-06-23 02:21 | Electrocardiograph Report ---
[place] [address] Test Date: 2018-06-21 Pat Name: Bertha Begum Department: 103 Room: 2A51 Gender: F Business Development Coordinator: EKP : 1945 Requested By: Viviana Ng Order Number: [id number] Reading MD: Julisa Butcher Measurements Intervals [place] Rate: 73 P: -13 FL: 169 QRS: 58 QRSD: 109 T: 61 QT: 416 QTc: 442 Interpretive Statements SINUS RHYTHM INTRAVENTRICULAR CONDUCTION DELAY [105+ ms QRS DURATION, 80+ ms Q/S IN V1/V2, NO Q AND 60+ ms R IN I/aVL/V5/V6] Electronically Signed On 06-22-2018 16:21:24 EDT by Julisa Butcher
[2018-06-23] MEDS: Ipratropium/Albuterol Neb 3 ML IH SCH ×6 (04:22→19:56)
[2018-06-23 06:04] LABS: Hematocrit 32.7 % (35.3-44.9); Hemoglobin 10.2 g/dL (11.5-15.4); Immature Granulocytes % 1.7 % (0-4); Lymphocytes # 0.2 K/mcL (0.6-4.6); Lymphocytes % 3.5 %; Mean Corpuscular HGB Conc 31.2 g/dL (31.6-35.5); Mean Corpuscular Hemoglobin 30.5 pg (28.0-33.3); Mean Corpuscular Volume 97.9 fL (83.0-100.0); Mean Platelet Volume 11.2 fL (9.4-12.4); Monocytes # 0.7 K/mcL (0.0-1.3); Monocytes % 11.3 %; Neutrophils # 4.8 K/mcL (1.6-8.9); Platelet Count 291 K/mcL (140-400); Red Blood Count 3.34 M/mcL (3.82-4.97); Red Cell Distribution Width 18.5 % (11.5-14.5); Segmented Neutrophils % 83.5 %
[2018-06-23] MEDS: *HR* Heparin 5,000 UNIT/ML VIAL SQ SCH ×2 (06:07→17:38)
[2018-06-23] MEDS: Levothyroxine 25 MCG TABLET PO SCH (06:07)
[2018-06-23 06:18] LABS: % Iron Saturation 25 % (15-50); Albumin 2.7 g/dL (3.5-5.7); Albumin/Globulin Ratio 1.1 (1.1-2.2); Bilirubin,Total 0.6 mg/dL (0.3-1.0); Calcium 7.9 mg/dL (8.6-10.3); Globulin 2.4 g/dL (2.4-3.5); Iron 44 mcg/dL (50-170); Potassium 4.3 mEq/L (3.5-5.1); Total Protein 5.1 g/dL (6.4-8.9); Transferrin 124 mg/dL (203-362)
[2018-06-23 06:35] LABS: Ferritin 487 ng/mL (10-120)
[2018-06-23 06:41] LABS: Folate 11.4 ng/mL (3.0-16.0)
[2018-06-23] MEDS ORDERED: amLODIPine 5 MG TABLET PO SCH (09:00)
[2018-06-23] MEDS: Piperacillin/Tazobactam 3.375 GM in 0.9 % Sodium Chloride Mini Bag 100 ML IVPB SCH ×2 (09:17→15:20)
[2018-06-23] MEDS: CycloSPORINE (SandIMMUNE) 100 MG CAPSULE PO SCH ×2 (10:15→20:44)
--- NOTE | 2018-06-23 10:15 | IR Procedure Note ---
Date of procedure: 06/23/18 Consent Obtained: Verbal consent, Written consent Timeout: Correct patient and procedure verified, Correct site verified, Time out performed, Skin prep completed Local anesthetic: Lidocaine 1% Procedure Performed: right thoracentesis Was there an high school assistant principal present: No Site/Technique: right chest Results/Findings: large right effusion Estimated blood loss (cc): 0 Complications: None; Tolerated procedure well Post Procedure Treatment Plan: chest radiograph Specimen: 1000 cc straw color fluid
[2018-06-23] MEDS: Acetaminophen 325 MG TABLET PO PRN ×2 (10:16→17:38)
[2018-06-23] MEDS: Aspirin 81 MG TAB.CHEW PO SCH (10:16)
[2018-06-23] MEDS: ARIPiprazole 10 MG TABLET PO SCH (10:16)
[2018-06-23 10:36] LABS: RBC,Pleural Fluid 0.002 M/mcL
[2018-06-23 10:41] LABS: Appearance of Pleural Fl Hazy (Clear)
--- NOTE | 2018-06-23 10:48 | Internal Med Progress Note ---
<Alexander Gómez - Last Filed: 06/23/18 17:00> Hospitalist Progress Note - Encounter Date of Encounter: 06/23/18 Time of Encounter: 10:00 - Subjective Interval History: 72 year old female presents from SNF with AMS, pneumonia, BL pleural effusion. This AM, patient is more alert. She is on 5L NC at 95%. Patient initally agreed to transfer to [facility] for transplant management, but [facility] declined and gave recommendations for treatment. She had thoracentesis this AM with 1L fluid drawn. Patient states her SOB is much improved after the procedure. She denies NAQVI, chest pain, bowel/bladder complaints, numbness/tingling. - Exam Vitals: Temp Pulse Resp BP Pulse Ox 97.7 F 83 16 131/78 95 06/23/18 07:38 06/23/18 07:38 06/23/18 07:39 06/23/18 07:38 06/23/18 07:39 Exam: Gen: Resting well. No acute distress. A&O x3 Heart: RRR Lungs: Decreased breath sounds bilaterally, improved from yesterday Abdomen: distended, non-tender, no organomegaly Genitourinary: ivan in place, no adams blood in urine Extremities: pitting edema to knees, neurovascularly intact, strength 5/5 in UE and LE Neuro: CN intact, no focal deficits - Assessment and Plan (1) Pneumonia Current Visit: Yes Status: Acute Assessment and Plan: Patient saturating at 95% on 5L NC Patient on zosyn Discontinued vancomycin to prevent kidney injury ID consulted Will follow recommendations (2) Pleural effusion Current Visit: Yes Status: Acute Assessment and Plan: Likely renal etiology - Proteinuria >1000 Patient had thoracentesis today 1 liter of straw colored fluid drawn Patient admits SOB is much improved now Will continue to monitor (3) Transplanted kidney Current Visit: Yes Status: Acute Assessment and Plan: Proteinuria >1000 Anasarca with pleural effusion Lasix on hold for now Cr 1.49 > 1.69 today, baseline is 1.8-2 Nephrology on consult Continue anti-rejection medications Check sirolimus levels Started fluids due to rising Cr Will follow recommendations (4) Atrial fibrillation with RVR Current Visit: Yes Status: Acute Assessment and Plan: Patient developed afib with RVR after thoracentesis today HR in 130s Cardiology consulted Started cardizem drip Discontinued norvasc due to hypotension Will continue cardiology recommendations (5) Altered mental status Current Visit: Yes Status: Acute Assessment and Plan: Improved, A&O x3 today (6) Lung cancer Current Visit: Yes Status: Chronic Assessment and Plan: S/p tumor resection (7) HTN (hypertension) Current Visit: Yes Status: Chronic Assessment and Plan: On cardizem drip Discontinued norvasc due to hypotension Will continue to monitor (8) HLD (hyperlipidemia) Current Visit: Yes Status: Chronic Assessment and Plan: On Simvastatin (9) Thyroid disease Current Visit: Yes Status: Chronic Assessment and Plan: On synthroid Elevated TSH - 10, but low-normal free T4 - 0.81 (10) Renal anasarca Current Visit: Yes Status: Acute Assessment and Plan: Pitting edema bilaterally, distended abdomen, bilateral pleural effusion Proteinuria >1000 Patient started on IV albumin Hold lasix for now to avoid intravascular depletion Nephrology on consult DVT Prophylaxis: Subcutaneous heparin 5000 units - Time Spent with Patient Total time spent is greater than 50% in coordination of care (as documented) at patient's floor/unit and/or counseling patient: 25 - 35 minutes Plan of Care Discussed with: patient Internal Medicine: Result - Labs CBC & Chem 7: 06/23/18 05:02 06/23/18 05:02 Labs: Short CBC 06/23/18 Range/Units 05:02 WBC 5.8 D (4.3-11.1) K/mcL Hgb 10.2 L (11.5-15.4) g/dL Hct 32.7 L (35.3-44.9) % Plt Count 291 (140-400) K/mcL Neutrophils # 4.8 (1.6-8.9) K/mcL BMP 06/23/18 05:02 Sodium 132 L Potassium 4.3 Chloride 101 Carbon Dioxide 25 BUN 36 H Creatinine 1.69 H Glucose 116 H Calcium 7.9 L Liver Function 06/23/18 Range/Units 05:02 Total Bilirubin 0.6 (0.3-1.0) mg/dL AST 14 (13-39) Units/L ALT 11 (7-52) Units/L Alkaline Phosphatase 113 H (34-104) Units/L Albumin 2.7 L (3.5-5.7) g/dL - ABG Interpretation ABG results: ABG ABG pH 7.34 pH Units (7.32-7.45) 06/22/18 04:12 ABG pCO2 53 mmHg (35-45) H 06/22/18 04:12 ABG pO2 59 mmHg (85-104) L 06/22/18 04:12 ABG O2 Saturation 88 % (95-98) L 06/22/18 04:12 PT/INR, D-dimer PT 10.7 Seconds (9.4-12.1) 06/22/18 06:32 - VTE Documentation of Mechanical Device: Intermittent pneumatic compression device Consult Discharge Plan - Plan Referrals: Barney Urena MD [Primary Care Provider] - <HariStefania - Last Filed: 06/23/18 18:53> Hospitalist Progress Note - Encounter Date of Encounter: 06/23/18 - Exam Vitals: Temp Pulse Resp BP Pulse Ox 97.8 F 128 24 111/75 91 06/23/18 17:53 06/23/18 17:53 06/23/18 17:53 06/23/18 17:53 06/23/18 17:53 - Assessment and Plan (1) Lung cancer Current Visit: Yes Status: Chronic (2) Altered mental status Current Visit: Yes Status: Acute (3) Pleural effusion Current Visit: Yes Status: Acute (4) HTN (hypertension) Current Visit: Yes Status: Chronic (5) HLD (hyperlipidemia) Current Visit: Yes Status: Chronic (6) Thyroid disease Current Visit: Yes Status: Chronic (7) Pneumonia Current Visit: Yes Status: Acute (8) Transplanted kidney Current Visit: Yes Status: Acute (9) Atrial fibrillation with RVR Current Visit: Yes Status: Acute (10) Renal anasarca Current Visit: Yes Status: Acute - Time Spent with Patient Total time spent is greater than 50% in coordination of care (as documented) at patient's floor/unit and/or counseling patient: Internal Medicine: Result - Labs CBC & Chem 7: 06/23/18 05:02 06/23/18 05:02 Labs: Short CBC 06/23/18 Range/Units 05:02 WBC 5.8 D (4.3-11.1) K/mcL Hgb 10.2 L (11.5-15.4) g/dL Hct 32.7 L (35.3-44.9) % Plt Count 291 (140-400) K/mcL Neutrophils # 4.8 (1.6-8.9) K/mcL BMP 06/23/18 05:02 Sodium 132 L Potassium 4.3 Chloride 101 Carbon Dioxide 25 BUN 36 H Creatinine 1.69 H Glucose 116 H Calcium 7.9 L Liver Function 06/23/18 Range/Units 05:02 Total Bilirubin 0.6 (0.3-1.0) mg/dL AST 14 (13-39) Units/L ALT 11 (7-52) Units/L Alkaline Phosphatase 113 H (34-104) Units/L Albumin 2.7 L (3.5-5.7) g/dL - ABG Interpretation ABG results: ABG ABG pH 7.34 pH Units (7.32-7.45) 06/22/18 04:12 ABG pCO2 53 mmHg (35-45) H 06/22/18 04:12 ABG pO2 59 mmHg (85-104) L 06/22/18 04:12 ABG O2 Saturation 88 % (95-98) L 06/22/18 04:12 PT/INR, D-dimer PT 10.7 Seconds (9.4-12.1) 06/22/18 06:32 - Impressions Impressions Thoracentesis 06/23/18 07:22 IMPRESSION: Successful ultrasound guided right thoracentesis. D/ / Vincent Roth / Vincent Roth Interpreting Provider: Vincent Roth Chest X-Ray 06/23/18 10:18 IMPRESSION: Improved aeration at the right base with no pneumothorax following thoracentesis. D/ / Iban Gleason MD / Iban Gleason MD Interpreting Provider: Iban Gleason MD - Attending Attestation I have seen and examined this patient independently. I have discussed with the resident physician Dr. Gómez regarding the management plan. Agree with the documentation. <DaliaAlexander Chitra - Last Filed: 06/23/18 17:00> (1) Pneumonia Qualifiers: Pneumonia type: due to unspecified organism Laterality: left Lung location: lower lobe of lung Qualified Code(s): J18.1 - Lobar pneumonia, unspecified organism (5) Altered mental status Qualifiers: Altered mental status type: somnolence Qualified Code(s): R40.0 - Somnolence (6) Lung cancer Qualifiers: Laterality: left Lung location: upper lobe of lung Qualified Code(s): C34.12 - Malignant neoplasm of upper lobe, left bronchus or lung (7) HTN (hypertension) Qualifiers: Hypertension type: essential hypertension Qualified Code(s): I10 - Essential (primary) hypertension (8) HLD (hyperlipidemia) Qualifiers: Hyperlipidemia type: pure hypercholesterolemia Qualified Code(s): E78.00 - Pure hypercholesterolemia, unspecified; E78.0 - Pure hypercholesterolemia <NoriegaStefania - Last Filed: 06/23/18 18:53> (1) Lung cancer Qualifiers: Laterality: left Lung location: upper lobe of lung Qualified Code(s): C34.12 - Malignant neoplasm of upper lobe, left bronchus or lung (2) Altered mental status Qualifiers: Altered mental status type: somnolence Qualified Code(s): R40.0 - Somnolence (4) HTN (hypertension) Qualifiers: Hypertension type: essential hypertension Qualified Code(s): I10 - Essential (primary) hypertension (5) HLD (hyperlipidemia) Qualifiers: Hyperlipidemia type: pure hypercholesterolemia Qualified Code(s): E78.00 - Pure hypercholesterolemia, unspecified; E78.0 - Pure hypercholesterolemia (7) Pneumonia Qualifiers: Pneumonia type: due to unspecified organism Laterality: left Lung location: lower lobe of lung Qualified Code(s): J18.1 - Lobar pneumonia, unspecified organism
[2018-06-23 11:10] LABS: Glucose,Pleural Fluid 118 mg/dL (No Ref Range); LDH,Pleural Fluid 61 Units/L (No Ref Range); Total Protein,Pleural Fluid < 3.0 g/dL (No Ref Range)
[2018-06-23 11:30] LABS: Lymphocytes,Pleural Fluid 47.4 %
--- NOTE | 2018-06-23 11:45 | Nephrology Progress Note ---
Date of Encounter: 06/23/18 Time of Encounter: 11:42 - Assessment and Plan (1) Transplanted kidney Current Visit: Yes Status: Acute Patient with renal transplant. Patient's creatinine has trended up overnight so I will had intravenous fluid. I spoke with the primary team who reports they have been in communication with [facility] transplant center and that the transplant center does not recommend transfer at this time. Monitor renal function closely. Avoid nephrotoxins. Adjust medications for renal function. (2) Altered mental status Current Visit: Yes Status: Acute Mental status is improved. Qualifiers: Altered mental status type: somnolence Qualified Code(s): R40.0 - Somnolence (3) Pneumonia Current Visit: Yes Status: Acute Per primary team. Seems to be improving. Qualifiers: Pneumonia type: due to unspecified organism Laterality: left Lung location: lower lobe of lung Qualified Code(s): J18.1 - Lobar pneumonia, unspecified organism (4) CKD (chronic kidney disease) stage 3, GFR 30-59 ml/min Current Visit: Yes Status: Chronic (5) HTN (hypertension) Current Visit: Yes Status: Chronic Titrate medications as needed. Qualifiers: Hypertension type: essential hypertension Qualified Code(s): I10 - Essential (primary) hypertension (6) Lung cancer Current Visit: Yes Status: Chronic Qualifiers: Laterality: left Lung location: upper lobe of lung Qualified Code(s): C34.12 - Malignant neoplasm of upper lobe, left bronchus or lung Subjective Principal diagnosis: CKD Interval history: Patient seen and evaluated. She is feeling slightly better this morning. She has no new complaint. Objective - Vital Signs Vital signs: Vital Signs Temp Pulse Resp BP Pulse Ox 06/23/18 09:17 95 06/23/18 07:39 16 95 06/23/18 07:38 97.7 F 83 19 131/78 95 06/23/18 05:24 98.3 F 83 18 119/83 94 06/23/18 04:22 18 88 06/23/18 00:00 16 96 06/22/18 23:36 98.6 F 90 18 133/83 94 06/22/18 20:33 17 86 06/22/18 15:58 20 92 06/22/18 15:27 97.7 F 90 20 132/78 92 Intake and Output 06/22/18 06/23/18 06/23/18 23:59 07:59 15:59 Intake Total 440 / 440 100 / 100 0 / 0 Output Total 300 / 300 300 / 300 Balance 140 / 140 -200 / -200 0 / 0 Intake: IV Fluids 100 / 100 100 / 100 Zosyn 3.375 GM In 0.9 % Sodium 100 / 100 100 / 100 Chloride (Mini-Bag +) 100 ML @ 25 mls/hr IVPB Q8HR [facility] Rx#: [id number] Oral 340 / 340 0 / 0 Output: Catheter 300 / 300 300 / 300 Other: Meal Dinner NPO Percent of Meal Consumed 0% 0% Stool Size Moderate Stool Color Brown # Bowel Movements 1 Weight 65.3 kg Patient Weight 06/23/18 23:59 Weight 65.3 kg - General Appearance General appearance: Present: well-developed, well-nourished EENT: Present: ATNC Neck: Present: supple Respiratory: Present: rhonchi Dialysis Vascular Access: Arteriovenous Fistula Integumentary: Present: warm and dry Neurologic: Present: alert and oriented x3 Musculoskeletal: Present: no cyanosis Psychiatric: Present: mood/affect appropriate - Lab 06/23/18 05:02 06/23/18 05:02 Most recent lab results ABG pH 7.34 pH Units (7.32-7.45) 06/22/18 04:12 ABG pCO2 53 mmHg (35-45) H 06/22/18 04:12 ABG pO2 59 mmHg (85-104) L 06/22/18 04:12 ABG HCO3 28 mEq/L (21-27) H 06/22/18 04:12 ABG O2 Saturation 88 % (95-98) L 06/22/18 04:12 Calcium 7.9 mg/dL (8.6-10.3) L 06/23/18 05:02 Magnesium 1.8 mg/dL (1.6-2.6) 06/21/18 13:11 - VTE Documentation of Mechanical Device: Intermittent pneumatic compression device Consult Discharge Plan - Plan Referrals: Barney Urena MD [Primary Care Provider] -
[2018-06-23] MEDS ORDERED: 0.9 % Sodium Chloride 1,000 ML IVC SCH (12:00)
[2018-06-23] MEDS: Albumin 25% 25gram/100mL 25 GM/100 ML IV.SOLN IVC SCH ×4 (12:53→17:38)
--- NOTE | 2018-06-23 13:43 | Event Note ---
Date of Encounter: 06/23/18 Time of Encounter: 13:00 Pt developped tachycardia. EKG shows A Fib RVR with HR 130-140. Possibly due to thoracentesis caused volume loss. Will give albumin iv to restore intravascular volume. Will start cardizem drip w/o bolus to treat tachycardia, as BP is tolerate. Closely monitor vitals. Pt had recent echo, which shows LVEF 60% w/o significant valve disease. TSH 10.73 on po synthroid. Mg 1.8. Will closely monitor electrolytes level. Will not start any anticoagulation today considering pt just had thoracentesis procedure. Consult cardiology to confirm arrhythemia and for instructor psychiatric aide care plan.
--- NOTE | 2018-06-23 15:05 | Infectious Disease Consult ---
Date of Encounter: 06/23/18 Time of Encounter: 14:44 Assessment and Plan (1) Mastoiditis of both sides Status: Acute Assessment and plan: MRI on 06/21 reveals severe bilateral mastoid effusions with opacificed middle ears concern for mastoiditis Pt asymptomatic, no hearing issues, no dizziness, no drainage and no headache consult ENT continue vancomycin and zosyn to cover MRSA, PSEA, Strep and H influenza await ENT recommendations if we need to give antibiotics ear drops vs systemic vs other? monitor labs and for drug toxicity (2) Altered mental status Status: Acute Assessment and plan: resolved etiology not clear mastoiditis vs pneumonia vs Drug related? no signs of infectious etiology Qualifiers: Altered mental status type: somnolence Qualified Code(s): R40.0 - Somnolence (3) Atrial fibrillation with RVR Status: Acute (4) SOB (shortness of breath) Status: Acute Assessment and plan: patient very anxious likely secondary to fluid overload and maybe early pneumonia? (5) Thyroid disease Status: Chronic Assessment and plan: patient has new onset A fib and proptosis TSH was elevated per primary team (6) Pneumonia Status: Acute Assessment and plan: patient has no fever and no leukocytosis she is immunosuppresed though CT on 06/21 reveals large bilateral pleural effusions with groundglass opacities in the aerated right long favoring edema over infection Patient is on cyclosporine and Rapamune Urine legionella and pneumococcal antigen check on 06/21/18 and were negative Blood cultures no growth so far Check respirator infectious panel Continue vancomycin and Zosyn Since legionella antigen negative I will not add levofloxacin we will see whether infectious panel shows. Goal vancomycin trough 10-15 Monitor labs and for drug toxicity. Monitor kidney function closely Qualifiers: Pneumonia type: due to unspecified organism Laterality: left Lung location: lower lobe of lung Qualified Code(s): J18.1 - Lobar pneumonia, unspecified organism (7) Immunosuppressed status Status: Acute Assessment and plan: Due to history of renal transplant 7 years ago. Currently on Rapamune 1 mg daily and cyclosporine 100 mg by mouth twice a day (8) Pleural effusion Status: Acute Assessment and plan: Status post thoracentesis; appears transudative Fluid: Nucleated cells space 99, neutrophils 13, total protein less than 3, albumin less than 1.5, LDH 61, glucose 118 Infectious Disease HPI - Data of Consult Patient: new to practice Consult date: 06/23/18 Requesting Physician: Mario Puentes Primary Care Provider: Barney Urena MD - Consult Narrative Reason for consult: Left lower lobe pneumonia History of present illness: Ms. Begum is a 72 year old female Patient is a 72-year-old woman who presented to [facility] on 06/21/2018 with altered mental status, we are consulted today on 06/23/18 for left lower lobe pneumonia. Patient 72-year-old woman with past medical history significant for COPD, hyperlipidemia, hypertension, chronic kidney disease, thyroid disease and anxiety and bipolar depression and history of renal transplant at [facility] in the right lower quadrant of the abdomen about 6 years ago. She is currently on Rapamune 1 mg daily and cyclosporine 100 mg by mouth twice a day. presented to the emergency department department chief complaint of altered mental status. Most of the information was taken from medical records since the patient is not a good historian. Since admission, patient has been afebrile but her MAXIMUM TEMPERATURE was 99.9 , no tachycardia and hemodynamically stable. Presenting labs revealed WBC of 5.6 with 84% neutrophils no bands. Patient was also pretty acidotic with a pH of 7.22, PCO2 of 75 and PO2 of 82. Patient's creatinine was 1.38 on admission and has been creeping up to 1.69 today. A urinalysis was obtained on admission and revealed no pyuria. Protein was over 1000. Patient had a chest x-ray which was read as moderate bilateral pleural effusion and left lower lobe consolidation bilateral airspace disease concerning for pneumonia. A CT of the chest hours later was read as "1. Large bilateral pleural effusions with adjacent compressive atelectasis. Ground-glass opacities in the aerated right lung are favored to represent sequelae of edema rather than infection. Significant secretions identified in the left-sided airways. Severe anasarca. No acute intra-abdominal abnormality. Postsurgical changes to the left hemithorax. Cholelithiasis. Right adnexal cyst measuring 2.5 cm. Dedicated pelvic ultrasound can be obtained on a nonemergent basis." MRI of the brain was also obtained and it revealed severe bilateral mastoid effusions with opacified middle ear correlation for mastoiditis. Patient underwent a thoracentesis where she had 1 L of straw-colored fluid removed. Fluid tree limb reveals transudative fluid. Cultures are pending. Patient has been on Zosyn. We are asked to evaluate the patient make further recommendations. On further questioning, patient appears anxious, tachycardic. Patient denies any earache. Denies any hearing problems. Tells me her hearing is at baseline. CC: Mario Puentes Past Med Surg Social Fam HX - Past Medical History Medical history: COPD, hyperlipidemia, hypertension, renal disease, thyroid disease, other Additional medical history: kidney transplant, malignant neoplasm upper lobe lung Psychiatric history: anxiety, bipolar, depression - Past Surgical History Surgical History: transplant - Social History Smoking Status: Current every day smoker Smokeless Tobacco Status: No Alcohol use: none Drug use: none Infectious Disease-CN:Meds Aspirin 81 mg PO DAILY 09/13/15 [History] Cyclosporine, Modified [Neoral] 100 mg PO BID 09/13/15 [History] ARIPiprazole [Abilify] 10 mg PO DAILY 06/21/18 [History] Doxepin HCl 100 mg PO HS 06/21/18 [History] Escitalopram [Lexapro] 20 mg PO DAILY 06/21/18 [History] Levothyroxine [Synthroid] 25 mcg PO 0630 06/21/18 [History] Pravastatin Sodium [Pravachol] 20 mg PO HS 06/21/18 [History] Sirolimus [Rapamune] 1 mg PO DAILY 06/21/18 [History] Sulfamethoxazole/Trimeth DS [Bactrim DS] 1 tab PO MOWEFR 06/21/18 [History] Trazodone HCl 300 mg PO HS 06/21/18 [History] amLODIPine [Norvasc] 5 mg PO DAILY 06/21/18 [History] hydrOXYzine HCl [Hydroxyzine HCl] 50 mg PO Q6H PRN 06/21/18 [History] 3 Allergy/AdvReac Type Severity Reaction Status Date / Time No Known Allergies Allergy Verified 05/12/18 08:29 Review of systems: 10 point review of systems done, negative other for what is mentioned in history of present illness. Exam - Constitutional Vitals: Temp Pulse Resp BP Pulse Ox 98.3 F 86 17 119/69 96 06/23/18 11:53 06/23/18 11:53 06/23/18 11:53 06/23/18 11:53 06/23/18 11:53 General appearance: disheveled, mild distress, no febrile - Head Head exam: Present: atraumatic, normocephalic Additional comments: No obvious mastoiditis clinically seen behind the ear - Eye Eye exam: Present: EOMI, PERRL Additional comments: Positive proptosis - ENT ENT exam: Present: mucous membranes dry Additional comments: No oral lesions - Neck Neck exam: Present: full ROM. Absent: thyromegaly - Respiratory Respiratory exam: Present: CTAB. Absent: wheezes - Cardiovascular Cardiovascular exam: Present: irregular rhythm, +S1, +S2, tachycardia - GI/Abdominal GI/Abdominal exam: Present: normal bowel sounds, soft - Extremities Exam Extremities exam: Present: full ROM. Absent: pedal edema - Neurological Exam Neurological exam: Present: alert, oriented X3 - Psychiatric Psychiatric exam: Present: agitated, anxious - Skin Skin exam: Present: pallor. Absent: rash Infectious Disease CN: Results - Labs CBC & Chem 7: 06/23/18 05:02 06/23/18 05:02 Serology: Serology 06/23/18 06/23/18 Range/Units 09:52 09:52 Pleural Fluid Volume 1000.0 mL Pleural Appearance Hazy A (Clear) Pleural pH 7.00 (No Ref Range) pH Units Pleural RBC 0.002 (0.000 - 0.002) M/mcL Pleural Tot Nuc Cell 99 (0-1000) TNC/mcL Pleural Neutrophils 13.2 % Pleural Band Neuts Test Not Performed Pleural Eosinophils Test Not Performed Pleural Basophils Test Not Performed Pleural Lymphocytes % 47.4 % Pleural Monocytes % Test Not Performed Pleural Other Cells % 39.5 % Pleural Total Protein < 3.0 (No Ref Range) g/dL Pleural Albumin < 1.5 (No Ref Range) g/dL Pleural LDH 61 (No Ref Range) Units/L Pleural Glucose 118 (No Ref Range) mg/dL Pleural Cholesterol 26 (No Ref Range) mg/dL - VTE Documentation of Mechanical Device: Intermittent pneumatic compression device Consult Discharge Plan - Plan Referrals: Barney Urena MD [Primary Care Provider] -
--- NOTE | 2018-06-23 15:34 | Cardiology Consult Note ---
<Carlos Yusuf - Last Filed: 06/23/18 16:15> Date of Encounter: 06/23/18 Time of Encounter: 15:32 Assessment and Plan (1) Atrial fibrillation with RVR Current Visit: Yes Status: Acute Patient presenting to the ER on 06/21 with AMS, overall improving In ER, EKG was NSR CT chest found bilaterally pleural effusion and had thoracentesis performed 06/23/18 with 1L fluid removal K 4.3, Mg 1.8, negative trop, TSH 10.733 Echocardiogram performed 06/22 showed EF 65-70% with moderate LV diastolic dysfunction, mild-mod MR and TR, mild pulm HTN, with pleural effusion. Post thoracentesis around 1330 patient was found to be in atrial fibrillation with RVR, denied chest pain or palpitations, started on Cardizem drip Repeat EKG at 1533 showed atrial fibrillation with RVR, rate of 130 bpm, blood pressure at 119/81 Cardizem drip has been titrating slowly due to hypotension, recommend stopping Norvasc Continue Cardizem 5/hr (2) HTN (hypertension) Current Visit: Yes Status: Chronic History of hypertension, on Norvasc at home. Patient blood pressure has been hypotensive since starting Cardizem drip. Was on Norvasc 5mg, Recommend stopping Norvasc at this time. Qualifiers: Hypertension type: essential hypertension Qualified Code(s): I10 - Essential (primary) hypertension Discussion w patient/family: The assessment and plan as outlined above was discussed with the patient and/or family members who expressed understanding and agreement. All questions were answered. Thank you for involving us in the care of your patient. Please call with any questions. History of Present Illness Consult date: 06/23/18 Requesting physician: Stefania Noriega Consult reason: new onset atrial fibrillation with RVR Chief complaint: AMS History of present illness: Ms. Begum is a 72 year old female with cardiology consult for new onset atrial fibrillation with RVR presented to the ER for AMS from [facility] on 06[facility]/18. Patient does not recall events that led to her arriving to the ER, per patient chart and family, patient had been more confused with generalized weakness. She was admitted from the ER following workup that showed CT chest/ CT Abdomen and Pelvis with bilateral pleural effusion, was placed on 3L NC satting around 98%. CT of the head was negative for acute intracranial process. Upon admission she was found to have HCAP via CXR which showed LLL opacities, started on Vanc/Zosyn. Initially she as started on lasix 40 mg however, this was discontinued. Patient had thoracentesis performed 06/22/18 which drained 1000ml of fluid. Most recent labs showed TSH 10.733, Mg 1.8, negative troponin, K 4.3, GFR 3, Creatinine at 1.69. Echocardiogram performed 06/22 showed EF 65-70% with moderate LV diastolic dysfunction, mild-mod MR and TR, mild pulm HTN, with pleural effusion. Today, patient continues to have some confusion, cannot remember inciting events , but states that she is not having any chest pain, palpitations or syncopal episodes. She states that her sob/ weakness has significantly decreased since her thoracentesis. Patient does state that she has lower extremity swelling which she does not believe to much different than her baseline. She denies history of atrial fibrillation or having history of abnormal rhythm. She does not know her medical history or home medications. Per nursing staff, patient has been answering questions appropriately but continues to have some confusion , that is different from baseline, per family yesterday. Past Med Surg Social Fam HX - Past Medical History Medical history: COPD, hyperlipidemia, hypertension, renal disease, thyroid disease, other Additional medical history: kidney transplant, malignant neoplasm upper lobe lung Psychiatric history: anxiety, bipolar, depression - Past Surgical History Surgical History: transplant - Social History Smoking Status: Current every day smoker Smokeless Tobacco Status: No Alcohol use: none Drug use: none Medications and Allergies Aspirin 81 mg PO DAILY 09/13/15 [History] Cyclosporine, Modified [Neoral] 100 mg PO BID 09/13/15 [History] ARIPiprazole [Abilify] 10 mg PO DAILY 06/21/18 [History] Doxepin HCl 100 mg PO HS 06/21/18 [History] Escitalopram [Lexapro] 20 mg PO DAILY 06/21/18 [History] Levothyroxine [Synthroid] 25 mcg PO 0630 06/21/18 [History] Pravastatin Sodium [Pravachol] 20 mg PO HS 06/21/18 [History] Sirolimus [Rapamune] 1 mg PO DAILY 06/21/18 [History] Sulfamethoxazole/Trimeth DS [Bactrim DS] 1 tab PO MOWEFR 06/21/18 [History] Trazodone HCl 300 mg PO HS 06/21/18 [History] amLODIPine [Norvasc] 5 mg PO DAILY 06/21/18 [History] hydrOXYzine HCl [Hydroxyzine HCl] 50 mg PO Q6H PRN 06/21/18 [History] 3 Allergy/AdvReac Type Severity Reaction Status Date / Time No Known Allergies Allergy Verified 05/12/18 08:29 All Systems Review: The remainder of the systems were reviewed and are negative - Constitutional Constitutional: lethargy, weakness, no chills, no fatigue, no fever(s), no headache(s), no night sweats - Cardiovascular Cardiovascular: leg edema, no chest pain at rest, no chest pain with exertion, no claudication, no diaphoresis, no dyspnea at rest, no dyspnea on exertion, no irregular heart rhythm, no radiating jaw, neck or arm pain, no lightheadedness, no orthopnea, no palpitations, no paroxysmal nocturnal dyspnea, no syncope - Respiratory Respiratory: no cough, no dyspnea - Gastrointestinal Gastrointestinal: no abdominal pain, no constipation, no diarrhea, no nausea - Musculoskeletal Musculoskeletal: no back pain, no myalgias - Integumentary Integumentary: no rash - Neurological Neurological: no dizziness, no focal weakness, no numbness, no syncope, no tingling Physical Examination Vital Signs, Last 4 Hours Temp Pulse Resp BP Pulse Ox 06/23/18 15:28 97.4 F L 136 24 119/81 95 06/23/18 11:53 98.3 F 86 17 119/69 96 General: Conversant (but unable to understand and respond to all questions, on nasal canula 5L) HEENT: Atraumatic, Normocephaly Neck: No JVD, Normal carotid pulses Cardiac: Normal S1 and S2 (irregularly irregular, tachycardic) Lungs: Normal Breath Sounds Neuro: Alert and responsive, No focal deficits noted Abdomen: Soft, Non-Tender Skin: No rashes noted on visualized skin Musculoskeletal: No Chest Wall Tenderness Extremities: Normal Pulses, Other (3 to 4+ pitting edema) Results 06/23/18 05:02 06/23/18 05:02 Lab Results 06/23/18 06/23/18 05:02 05:02 WBC 5.8 D Hgb 10.2 L Hct 32.7 L Plt Count 291 Sodium 132 L Potassium 4.3 Chloride 101 Carbon Dioxide 25 BUN 36 H Creatinine 1.69 H Glucose 116 H Calcium 7.9 L Total Bilirubin 0.6 AST 14 ALT 11 Alkaline Phosphatase 113 H - Imaging and Cardiology Chest Xray: report reviewed Echo: report reviewed - EKG Interpretation EKG results cardiology: personally reviewed (EKG on 06/23/18 at 1530 shows ventricular rate of 130, atrial fibrillation with RVR, PVC noted, non specific ST, T wave changes.) Consult Discharge Plan - Plan Referrals: Barney Urena MD [Primary Care Provider] - <Kiet Reeves - Last Filed: 06/23/18 16:19> Date of Encounter: 06/23/18 - Attending Attestation I examined this patient and my medical decision-making was reviewed with the Resident Physician. I agree with the documented findings, disposition and treatment plan as described except to the extent set forth below. AF after thoracentesis. Agree with cardizem for rate control and 2D echo. Further recs based on clinical response. Assessment and Plan Discussion w patient/family: The assessment and plan as outlined above was discussed with the patient and/or family members who expressed understanding and agreement. All questions were answered. Thank you for involving us in the care of your patient. Please call with any questions. History of Present Illness History of present illness: Ms. Begum is a 72 year old female All Systems Review: The remainder of the systems were reviewed and are negative Physical Examination Vital Signs, Last 4 Hours Temp Pulse Resp BP Pulse Ox 06/23/18 15:28 97.4 F L 136 24 119/81 95 Results 06/23/18 05:02 06/23/18 05:02 Lab Results 06/23/18 06/23/18 05:02 05:02 WBC 5.8 D Hgb 10.2 L Hct 32.7 L Plt Count 291 Sodium 132 L Potassium 4.3 Chloride 101 Carbon Dioxide 25 BUN 36 H Creatinine 1.69 H Glucose 116 H Calcium 7.9 L Total Bilirubin 0.6 AST 14 ALT 11 Alkaline Phosphatase 113 H
[2018-06-23] MEDS ORDERED: Furosemide 20 MG/2 ML VIAL IVP ONE (19:30)
[2018-06-23] MEDS: hydrOXYzine pamoate 25 MG CAPSULE PO PRN (20:44)
[2018-06-24] MEDS: Piperacillin/Tazobactam 3.375 GM in 0.9 % Sodium Chloride Mini Bag 100 ML IVPB SCH ×2 (01:13→08:56)
[2018-06-24] MEDS ORDERED: *HR* LORazepam 2 MG/ML VIAL IVP ONE ×3 (03:34→11:01)
[2018-06-24] MEDS ORDERED: *HR* LORazepam 2 MG/ML VIAL ONE (03:38)
[2018-06-24] MEDS: Ipratropium/Albuterol Neb 3 ML IH SCH ×3 (03:51→07:27)
[2018-06-24 04:50] LABS: Basophils % 0.1 %; Eosinophils % 0.1 %; Hematocrit 28.2 % (35.3-44.9); Immature Granulocytes % 1.7 % (0-4); Lymphocytes # 0.2 K/mcL (0.6-4.6); Lymphocytes % 1.8 %; Mean Corpuscular HGB Conc 30.5 g/dL (31.6-35.5); Mean Corpuscular Hemoglobin 29.8 pg (28.0-33.3); Mean Corpuscular Volume 97.6 fL (83.0-100.0); Mean Platelet Volume 10.8 fL (9.4-12.4); Monocytes # 0.7 K/mcL (0.0-1.3); Platelet Count 271 K/mcL (140-400); Red Blood Count 2.89 M/mcL (3.82-4.97); Red Cell Distribution Width 18.4 % (11.5-14.5); Segmented Neutrophils % 88.3 %
[2018-06-24 04:56] LABS: Hemoglobin 8.6 g/dL (11.5-15.4)
[2018-06-24 05:08] LABS: Albumin 3.7 g/dL (3.5-5.7); Albumin/Globulin Ratio 2.3 (1.1-2.2); Bilirubin,Total 0.7 mg/dL (0.3-1.0); Calcium 8.3 mg/dL (8.6-10.3); Globulin 1.6 g/dL (2.4-3.5); Total Protein 5.3 g/dL (6.4-8.9)
[2018-06-24 05:23] LABS: Anisocytosis 1+ (Not Present); Platelet Estimate Normal (Normal)
[2018-06-24 05:24] LABS: Hypochromasia Present (Not Present); Polychromasia 1+ (Not Present)
[2018-06-24] MEDS: *HR* Heparin 5,000 UNIT/ML VIAL SQ SCH (06:31)
[2018-06-24] MEDS: Levothyroxine 25 MCG TABLET PO SCH (06:32)
[2018-06-24] MEDS ORDERED: Furosemide 40 MG/4 ML VIAL IVP ONE (07:07)
--- NOTE | 2018-06-24 08:21 | Internal Med Progress Note ---
Date of Encounter: 06/24/18 Time of Encounter: 08:19 - Subjective Interval history: Patient resting in bed. Currently on BiPAP, but alert and responding to commands and questions. Denies complaints at this time. Denies chest pain, worsening dyspnea, cough, abdominal pain, nausea, vomiting, change in bowels or urination. - Constitutional Vitals: Temp Pulse Resp BP Pulse Ox 97.5 F L 112 20 113/81 93 06/24/18 08:00 06/24/18 08:00 06/24/18 08:00 06/24/18 08:00 06/24/18 08:00 - Other Additional findings: GEN: No acute distress, alert HEAD: Atraumatic, normocephalic EYES: Pupils symmetric, sclera white, conjunctiva pink HEART: irregularly irregular, normal S1 and S2, no murmurs LUNGS: Coarse rhonchi bilaterally ABD: Soft, nontender, nondistended, bowel sounds present : Patrick in place EXT: Pitting edema bilaterally up to the knee, pulses 2/4 NEURO: No focal deficits, cooperative with exam Internal Medicine: Result - Labs CBC & Chem 7: 06/24/18 04:27 06/24/18 04:27 Labs: Short CBC 06/24/18 Range/Units 04:27 WBC 9.1 D (4.3-11.1) K/mcL Hgb 8.6 L D (11.5-15.4) g/dL Hct 28.2 L (35.3-44.9) % Plt Count 271 (140-400) K/mcL Neutrophils # 8.0 (1.6-8.9) K/mcL BMP 06/24/18 04:27 Sodium 136 Potassium 4.0 Chloride 99 Carbon Dioxide 28 BUN 38 H Creatinine 1.68 H Glucose 120 H Calcium 8.3 L Liver Function 06/24/18 Range/Units 04:27 Total Bilirubin 0.7 (0.3-1.0) mg/dL AST 12 L (13-39) Units/L ALT 9 (7-52) Units/L Alkaline Phosphatase 82 (34-104) Units/L Albumin 3.7 (3.5-5.7) g/dL - ABG Interpretation ABG results: ABG ABG pH 7.34 pH Units (7.32-7.45) 06/22/18 04:12 ABG pCO2 53 mmHg (35-45) H 06/22/18 04:12 ABG pO2 59 mmHg (85-104) L 06/22/18 04:12 ABG O2 Saturation 88 % (95-98) L 06/22/18 04:12 PT/INR, D-dimer PT 10.7 Seconds (9.4-12.1) 06/22/18 06:32 - Impressions Impressions Thoracentesis 06/23/18 07:22 IMPRESSION: Successful ultrasound guided right thoracentesis. D/ / Vincent Roth / Vincent Roth Interpreting Provider: Vincent Roth Chest X-Ray 06/23/18 10:18 IMPRESSION: Improved aeration at the right base with no pneumothorax following thoracentesis. D/ / Iban Gleason MD / Iban Gleason MD Interpreting Provider: Iban Gleason MD - VTE Documentation of Mechanical Device: Intermittent pneumatic compression device Consult Discharge Plan - Plan Referrals: Barney Urena MD [Primary Care Provider] -
--- NOTE | 2018-06-24 08:25 | Internal Med Progress Note ---
<Jerome Corrales - Last Filed: 06/24/18 09:45> Hospitalist Progress Note - Encounter Date of Encounter: 06/24/18 Time of Encounter: 08:24 - Subjective Interval History: Patient resting in bed. Currently on BiPAP, but alert and responding to commands and questions. Denies complaints at this time. Denies chest pain, worsening dyspnea, cough, abdominal pain, nausea, vomiting, change in bowels or urination. - Exam Vitals: Temp Pulse Resp BP Pulse Ox 97.5 F L 112 20 113/81 93 06/24/18 08:00 06/24/18 08:00 06/24/18 08:00 06/24/18 08:00 06/24/18 08:00 Exam: GEN: No acute distress, alert HEAD: Atraumatic, normocephalic EYES: Pupils symmetric, sclera white, conjunctiva pink HEART: irregularly irregular, normal S1 and S2, no murmurs LUNGS: Coarse rhonchi bilaterally ABD: Soft, nontender, nondistended, bowel sounds present : Patrick in place EXT: Pitting edema bilaterally up to the knee, pulses 2/4 NEURO: No focal deficits, cooperative with exam - Assessment and Plan (1) Pneumonia Current Visit: Yes Status: Acute Assessment and Plan: Currently on BiPAP, O2 sat has been 87-95 overnight, no respiratory distress Afebrile, no leukocytosis - patient on immunosuppressive therapy s/p renal transplant ID consulted - continue Zosyn and vancomycin - Check Vanco trough daily to maintain a level 10-15, today 14 - likely dose vancomycin tomorrow BCx 06/21/18: NGTD Resp Inf Panel pending Fluid status appears to be worsening - will transfer to ICU (2) Pleural effusion Current Visit: Yes Status: Acute Assessment and Plan: S/P thoracentesis yesterday - appears translated, related to renal anasarca (3) Renal anasarca Current Visit: Yes Status: Acute Assessment and Plan: Patient edema, pleural effusion, abdominal distention with proteinuria Renal function stable compared to yesterday, SCr 1.68 Given IV albumin Limited response to Lasix yesterday, will increase dose today Nephrology consult, appreciate recommendations (4) Atrial fibrillation with RVR Current Visit: Yes Status: Acute Assessment and Plan: Rate currently 98-112 Cardiology consult - on Franklyn Stoll held (5) Thyroid disease Current Visit: Yes Status: Chronic Assessment and Plan: TSH elevated, free T4 is normal - continue levothyroxine (6) Altered mental status Current Visit: Yes Status: Acute Assessment and Plan: Improved (7) Transplanted kidney Current Visit: Yes Status: Acute Assessment and Plan: Continue immunosuppressive therapy Nephrology consult, appreciate recommendations (8) HLD (hyperlipidemia) Current Visit: Yes Status: Chronic Assessment and Plan: Continue home meds (9) HTN (hypertension) Current Visit: Yes Status: Chronic Assessment and Plan: Norvasc on hold, with current Franklyn hickey currently (10) Lung cancer Current Visit: Yes Status: Chronic Assessment and Plan: s/p tumor resection DVT Prophylaxis: Subcutaneous heparin - Time Spent with Patient Total time spent is greater than 50% in coordination of care (as documented) at patient's floor/unit and/or counseling patient: Internal Medicine: Result - Labs CBC & Chem 7: 06/24/18 04:27 06/24/18 04:27 Labs: Short CBC 06/24/18 Range/Units 04:27 WBC 9.1 D (4.3-11.1) K/mcL Hgb 8.6 L D (11.5-15.4) g/dL Hct 28.2 L (35.3-44.9) % Plt Count 271 (140-400) K/mcL Neutrophils # 8.0 (1.6-8.9) K/mcL BMP 06/24/18 04:27 Sodium 136 Potassium 4.0 Chloride 99 Carbon Dioxide 28 BUN 38 H Creatinine 1.68 H Glucose 120 H Calcium 8.3 L Liver Function 06/24/18 Range/Units 04:27 Total Bilirubin 0.7 (0.3-1.0) mg/dL AST 12 L (13-39) Units/L ALT 9 (7-52) Units/L Alkaline Phosphatase 82 (34-104) Units/L Albumin 3.7 (3.5-5.7) g/dL - ABG Interpretation ABG results: ABG ABG pH 7.34 pH Units (7.32-7.45) 06/22/18 04:12 ABG pCO2 53 mmHg (35-45) H 06/22/18 04:12 ABG pO2 59 mmHg (85-104) L 06/22/18 04:12 ABG O2 Saturation 88 % (95-98) L 06/22/18 04:12 PT/INR, D-dimer PT 10.7 Seconds (9.4-12.1) 06/22/18 06:32 - Impressions Impressions Thoracentesis 06/23/18 07:22 IMPRESSION: Successful ultrasound guided right thoracentesis. D/ / Vincent Roth / Vincent Roth Interpreting Provider: Vincent Roth Chest X-Ray 06/23/18 10:18 IMPRESSION: Improved aeration at the right base with no pneumothorax following thoracentesis. D/ / Iban Gleason MD / Iban Gleason MD Interpreting Provider: Iban Gleason MD - VTE Documentation of Mechanical Device: Intermittent pneumatic compression device Consult Discharge Plan - Plan Referrals: Barney Urena MD [Primary Care Provider] - <HariMyrademetrio - Last Filed: 06/24/18 14:13> Hospitalist Progress Note - Encounter Date of Encounter: 06/24/18 - Exam Vitals: Temp Pulse Resp BP Pulse Ox 98.8 F 93 18 123/89 95 06/24/18 12:00 06/24/18 13:00 06/24/18 13:00 06/24/18 13:00 06/24/18 13:00 - Assessment and Plan (1) Lung cancer Current Visit: Yes Status: Chronic (2) Altered mental status Current Visit: Yes Status: Acute (3) Pleural effusion Current Visit: Yes Status: Acute (4) HTN (hypertension) Current Visit: Yes Status: Chronic (5) HLD (hyperlipidemia) Current Visit: Yes Status: Chronic (6) Thyroid disease Current Visit: Yes Status: Chronic (7) Pneumonia Current Visit: Yes Status: Acute (8) Transplanted kidney Current Visit: Yes Status: Acute (9) Atrial fibrillation with RVR Current Visit: Yes Status: Acute (10) Renal anasarca Current Visit: Yes Status: Acute - Time Spent with Patient Total time spent is greater than 50% in coordination of care (as documented) at patient's floor/unit and/or counseling patient: Internal Medicine: Result - Labs CBC & Chem 7: 06/24/18 12:29 06/24/18 04:27 Labs: Short CBC 06/24/18 06/24/18 Range/Units 04:27 12:29 WBC 9.1 D (4.3-11.1) K/mcL Hgb 8.6 L D 9.3 L (11.5-15.4) g/dL Hct 28.2 L 30.1 L (35.3-44.9) % Plt Count 271 (140-400) K/mcL Neutrophils # 8.0 (1.6-8.9) K/mcL BMP 06/24/18 04:27 Sodium 136 Potassium 4.0 Chloride 99 Carbon Dioxide 28 BUN 38 H Creatinine 1.68 H Glucose 120 H Calcium 8.3 L Liver Function 06/24/18 Range/Units 04:27 Total Bilirubin 0.7 (0.3-1.0) mg/dL AST 12 L (13-39) Units/L ALT 9 (7-52) Units/L Alkaline Phosphatase 82 (34-104) Units/L Albumin 3.7 (3.5-5.7) g/dL - ABG Interpretation ABG results: ABG ABG pH 7.34 pH Units (7.32-7.45) 06/22/18 04:12 ABG pCO2 53 mmHg (35-45) H 06/22/18 04:12 ABG pO2 59 mmHg (85-104) L 06/22/18 04:12 ABG O2 Saturation 88 % (95-98) L 06/22/18 04:12 PT/INR, D-dimer PT 10.7 Seconds (9.4-12.1) 06/22/18 06:32 - Impressions Impressions Chest X-Ray 06/24/18 10:26 IMPRESSION: Interval increase in pulmonary edema and bilateral effusions. D/ / Roger Cage MD / Roger Cage MD Interpreting Provider: Roger Cage MD - Attending Attestation I have seen and examined this patient independently. I have discussed with resident physician Dr Corrales regarding the management plan. Agree with the documentation. Patient is generally getting worse today, need high-level oxygen and BiPAP to maintain oxygen saturation. Continue having A. fib on Cardizem drip to control heart rate. Pulmonology consult appreciated. Patient had kidney transplant in [facility] 7 years ago. Discuss with family, nephrology on pulmonology consult, it will be best for the patient to transfer to [facility] for further management. Family agrees, [facility] has acceptted patient. Transfer is in process. <Jerome Corrales - Last Filed: 06/24/18 09:45> (1) Pneumonia Qualifiers: Pneumonia type: due to unspecified organism Laterality: left Lung location: lower lobe of lung Qualified Code(s): J18.1 - Lobar pneumonia, unspecified organism (6) Altered mental status Qualifiers: Altered mental status type: somnolence Qualified Code(s): R40.0 - Somnolence (8) HLD (hyperlipidemia) Qualifiers: Hyperlipidemia type: pure hypercholesterolemia Qualified Code(s): E78.00 - Pure hypercholesterolemia, unspecified; E78.0 - Pure hypercholesterolemia (9) HTN (hypertension) Qualifiers: Hypertension type: essential hypertension Qualified Code(s): I10 - Essential (primary) hypertension (10) Lung cancer Qualifiers: Laterality: left Lung location: upper lobe of lung Qualified Code(s): C34.12 - Malignant neoplasm of upper lobe, left bronchus or lung <Stefania Noriega - Last Filed: 06/24/18 14:13> (1) Lung cancer Qualifiers: Qualified Code(s): C34.12 - Malignant neoplasm of upper lobe, left bronchus or lung (2) Altered mental status Qualifiers: Qualified Code(s): R40.0 - Somnolence (4) HTN (hypertension) Qualifiers: Qualified Code(s): I10 - Essential (primary) hypertension (5) HLD (hyperlipidemia) Qualifiers: Qualified Code(s): E78.00 - Pure hypercholesterolemia, unspecified; E78.0 - Pure hypercholesterolemia (7) Pneumonia Qualifiers: Qualified Code(s): J18.1 - Lobar pneumonia, unspecified organism
--- NOTE | 2018-06-24 08:39 | Nephrology Progress Note ---
Date of Encounter: 06/24/18 Time of Encounter: 08:39 - Assessment and Plan (1) Transplanted kidney Current Visit: Yes Status: Acute Patient with renal transplant. Patient's creatinine continues to trend up despite the addition of fluid yesterday. The primary team's initial conversation with the transplant team at [facility] was that the patient did not need to be transferred. Unfortunately since yesterday the patient's clinical status has worsened and she is now back on BiPAP with decreased level of consciousness. The patient had atrial fibrillation with rapid ventricular rate and pleural effusions. The pleural effusions status post thoracentesis with 1 L of fluid removal. The patient's atrial fibrillation was evaluated by cardiology and is currently being managed with a diltiazem drip. As stated before her respiratory status is also worsen such that she now requires BiPAP. Per reports she initially was refusing intubation, but now she is wanting intubation. After a conversation with the family and the patient it was determined that the patient does want aggressive care. In a joint conference with Dr. Crum and the family we had an extensive discussion regarding the best care for the patient. As the patient wants aggressive care it is most appropriate to request a transfer to [facility] for evaluation and management by the transplant team as well as continuity of care for her transplant. . In an attempt to avoid intubation I will initiate ultrafiltration for fluid removal and hopes that it would improve her respiratory status. If this is not successful the patient may need intubation prior to transport to [facility]. 47 minutes spent in the care of this critically ill patient. (2) Altered mental status Current Visit: Yes Status: Acute Mental status is worsening. Qualifiers: Altered mental status type: somnolence Qualified Code(s): R40.0 - Somnolence (3) Pneumonia Current Visit: Yes Status: Acute Per primary team. Qualifiers: Pneumonia type: due to unspecified organism Laterality: left Lung location: lower lobe of lung Qualified Code(s): J18.1 - Lobar pneumonia, unspecified organism (4) CKD (chronic kidney disease) stage 3, GFR 30-59 ml/min Current Visit: Yes Status: Chronic (5) HTN (hypertension) Current Visit: Yes Status: Chronic Titrate medications as needed. Qualifiers: Hypertension type: essential hypertension Qualified Code(s): I10 - Essential (primary) hypertension (6) Lung cancer Current Visit: Yes Status: Chronic Qualifiers: Laterality: left Lung location: upper lobe of lung Qualified Code(s): C34.12 - Malignant neoplasm of upper lobe, left bronchus or lung Subjective Principal diagnosis: CKD Interval history: Patient seen and evaluated. Patient has decompensated since yesterday. Her respiratory status has worsened and she is on BiPAP machine. She was found to have atrophic fibrillation with rapid ventricular rate. She is less alert as compared to yesterday. Her brother is at the bedside. I spoken with both the hospitalist as well as the critical care team regarding the patient's care. She was later moved from the floor to the intensive care unit. I have had long conversations with the hospitalist, the family, and the intensive care team. Objective - Vital Signs Vital signs: Vital Signs Temp Pulse Resp BP Pulse Ox 06/24/18 08:00 97.5 F L 112 20 113/81 93 06/24/18 07:27 19 90 06/24/18 03:52 17 109/71 90 06/24/18 03:51 97.9 F 106 18 121/80 90 06/24/18 00:05 97.6 F 103 18 104/69 87 06/24/18 00:00 15 104/69 89 06/23/18 19:56 22 123/84 88 06/23/18 19:48 98.0 F 109 20 123/84 89 06/23/18 17:53 97.8 F 128 24 111/75 91 06/23/18 16:50 97.8 F 128 26 113/77 93 06/23/18 15:28 97.4 F L 136 24 119/81 95 06/23/18 13:55 98.2 F 135 23 95/65 94 06/23/18 11:53 98.3 F 86 17 119/69 96 06/23/18 11:23 16 97 06/23/18 09:17 95 Intake and Output 06/23/18 06/24/18 06/24/18 23:59 07:59 15:59 Intake Total 587.0 / 587.0 50 / 50 Output Total 350 / 350 250 / 250 Balance 237.0 / 237.0 -200 / -200 Intake: IV Fluids 347.0 / 347.0 50 / 50 Flexbumin 25 gm In 100 ml @ 60 200 / 200 mls/hr IVC .Q1H40M [facility] Rx#: [id number] Cardizem 50 MG In 0.9 % Sodium 47.0 / 47.0 50 / 50 Chloride 40 ML @ 5 MG/HR 5 mls/ hr IVC .Q10H [facility] Rx#:[id number] Zosyn 3.375 GM In 0.9 % Sodium 100 / 100 Chloride (Mini-Bag +) 100 ML @ 25 mls/hr IVPB Q8HR [facility] Rx#: [id number] Oral 240 / 240 Output: Catheter 350 / 350 250 / 250 Other: Meal Dinner Percent of Meal Consumed 0% Stool Size Moderate Stool Consistency loose Stool Color Brown # Bowel Movements 1 # Bowel Movement Diapers 1 - General Appearance General appearance: Present: well-developed, well-nourished EENT: Present: ATNC Respiratory: Present: rhonchi Cardiology: Present: edema Additional Comments: Tachycardic Dialysis Vascular Access: Arteriovenous Fistula Gastrointestinal: Present: no tenderness Integumentary: Present: warm and dry Additional Comments: Patient is much more lethargic than yesterday. She is arousable. Musculoskeletal: Present: no cyanosis Psychiatric: Present: mood/affect appropriate - Lab 06/24/18 04:27 06/24/18 04:27 Most recent lab results ABG pH 7.34 pH Units (7.32-7.45) 06/22/18 04:12 ABG pCO2 53 mmHg (35-45) H 06/22/18 04:12 ABG pO2 59 mmHg (85-104) L 06/22/18 04:12 ABG HCO3 28 mEq/L (21-27) H 06/22/18 04:12 ABG O2 Saturation 88 % (95-98) L 06/22/18 04:12 Calcium 8.3 mg/dL (8.6-10.3) L 06/24/18 04:27 Magnesium 1.9 mg/dL (1.6-2.6) 06/24/18 04:27 - VTE Documentation of Mechanical Device: Intermittent pneumatic compression device Consult Discharge Plan - Plan Referrals: Barney Urena MD [Primary Care Provider] -
[2018-06-24] MEDS: ARIPiprazole 10 MG TABLET PO SCH (08:56)
[2018-06-24] MEDS: CycloSPORINE (SandIMMUNE) 100 MG CAPSULE PO SCH (08:56)
[2018-06-24] MEDS: Aspirin 81 MG TAB.CHEW PO SCH (08:57)
--- NOTE | 2018-06-24 09:40 | Pulmonology Consult Note ---
<ShellHanna M - Last Filed: 06/24/18 11:57> Date of Encounter: 06/24/18 Medications and Allergies Aspirin 81 mg PO DAILY 09/13/15 [History] Cyclosporine, Modified [Neoral] 100 mg PO BID 09/13/15 [History] ARIPiprazole [Abilify] 10 mg PO DAILY 06/21/18 [History] Doxepin HCl 100 mg PO HS 06/21/18 [History] Escitalopram [Lexapro] 20 mg PO DAILY 06/21/18 [History] Levothyroxine [Synthroid] 25 mcg PO 0630 06/21/18 [History] Pravastatin Sodium [Pravachol] 20 mg PO HS 06/21/18 [History] Sirolimus [Rapamune] 1 mg PO DAILY 06/21/18 [History] Sulfamethoxazole/Trimeth DS [Bactrim Ds] 1 tab PO MOWEFR 06/21/18 [History] Trazodone HCl 300 mg PO HS 06/21/18 [History] amLODIPine [Norvasc] 5 mg PO DAILY 06/21/18 [History] hydrOXYzine HCl [Hydroxyzine HCl] 50 mg PO Q6H PRN 06/21/18 [History] Acetaminophen [Tylenol] 650 mg PO Q6HR PRN tablet 06/24/18 [Rx] 3 Allergy/AdvReac Type Severity Reaction Status Date / Time No Known Allergies Allergy Verified 05/12/18 08:29 All Systems: The remainder of the systems were reviewed and are negative Physical Examination Vital Signs: Vital Signs, Last 4 Hours Temp Pulse Resp BP Pulse Ox 06/24/18 11:07 17 93 06/24/18 08:00 97.5 F L 112 20 113/81 93 Results - Laboratory Findings CBC and BMP: 06/24/18 04:27 06/24/18 04:27 ABG ABG pH 7.34 pH Units (7.32-7.45) 06/22/18 04:12 ABG pCO2 53 mmHg (35-45) H 06/22/18 04:12 ABG pO2 59 mmHg (85-104) L 06/22/18 04:12 ABG O2 Saturation 88 % (95-98) L 06/22/18 04:12 PT/INR, D-dimer PT 10.7 Seconds (9.4-12.1) 06/22/18 06:32 Abnormal lab findings: Abnormal lab results RBC 2.89 M/mcL (3.82-4.97) L 06/24/18 04:27 Hgb 8.6 g/dL (11.5-15.4) L D 06/24/18 04:27 Hct 28.2 % (35.3-44.9) L 06/24/18 04:27 MCHC 30.5 g/dL (31.6-35.5) L 06/24/18 04:27 RDW 18.4 % (11.5-14.5) H 06/24/18 04:27 Lymphocytes # 0.2 K/mcL (0.6-4.6) L 06/24/18 04:27 Polychromasia 1+ (Not Present) A 06/24/18 04:27 Hypochromasia Present (Not Present) A 06/24/18 04:27 Basophilic Stippling 1+ (Not Present) A 06/21/18 13:11 Anisocytosis 1+ (Not Present) A 06/24/18 04:27 APTT 25.8 Seconds (26.0-36.0) L 06/22/18 06:32 ABG pCO2 53 mmHg (35-45) H 06/22/18 04:12 ABG pO2 59 mmHg (85-104) L 06/22/18 04:12 ABG HCO3 28 mEq/L (21-27) H 06/22/18 04:12 ABG Total CO2 30 mEq/L (20-26) H 06/22/18 04:12 ABG O2 Saturation 88 % (95-98) L 06/22/18 04:12 BUN 38 mg/dL (8-23) H 06/24/18 04:27 Creatinine 1.68 mg/dL (0.60-1.20) H 06/24/18 04:27 Est GFR ( Amer) 36 (> 60) L 06/24/18 04:27 Est GFR (Non-Af Amer) 30 (> 60) L 06/24/18 04:27 Glucose 120 mg/dL (70-105) H 06/24/18 04:27 POC Glucose 107 mg/dL (70-99) H 06/22/18 07:54 Calcium 8.3 mg/dL (8.6-10.3) L 06/24/18 04:27 Iron 44 mcg/dL (50-170) L 06/23/18 05:02 Transferrin 124 mg/dL (203-362) L 06/23/18 05:02 Ferritin 487 ng/mL (10-120) H 06/23/18 05:02 AST 12 Units/L (13-39) L 06/24/18 04:27 Serum Total Protein 5.3 g/dL (6.4-8.9) L 06/24/18 04:27 Globulin 1.6 g/dL (2.4-3.5) L 06/24/18 04:27 Albumin/Globulin Ratio 2.3 (1.1-2.2) H 06/24/18 04:27 Cholesterol 263 mg/dL (< 200) H 06/22/18 06:32 LDL Cholesterol, Calc 148 mg/dL (0-99) H 06/22/18 06:32 HDL Cholesterol 95 mg/dL (40-59) H 06/22/18 06:32 TSH 10.733 mcIU/mL (0.340-5.600) H 06/21/18 18:44 Urine Clarity Cloudy (Clear) A 06/21/18 13:16 Urine Protein >=1000 mg/dL (Neg-Trace) H 06/21/18 13:16 Urine Bilirubin Small (Negative) H 06/21/18 13:16 Urine Microscopic WBC 3-5 per hpf (0-3) H 06/21/18 13:16 Ur Squamous Epith Cells Many per lpf (None-Few) H 06/21/18 13:16 Pleural Appearance Hazy (Clear) A 06/23/18 09:52 - Clinical Findings Intake & Output: Intake & Output 06/23/18 06/24/18 06/24/18 23:59 07:59 15:59 Intake Total 587.0 / 587.0 150 / 150 0 / 0 Output Total 350 / 350 250 / 250 350 / 350 Balance 237.0 / 237.0 -100 / -100 -350 / -350 Consult Discharge Plan - Plan Referrals: Barney Urena MD [Primary Care Provider] - - Attending Attestation I examined this patient and my medical decision-making was reviewed with the Resident Physician. I agree with the documented findings, disposition and treatment plan as described except to the extent set forth below. Patient seen and examined. I was called to evaluate patient and she was evaluated when she was on the floor and in the ICU with the resident. Labs, radiology, chart personally reviewed. Agree with resident's history and physical, assessment, plan with following comments: BELL MAKER: Patient follows commands, Pulmonary: Acceptable oxygenation and ventilation on the noninvasive ventilation and clearly she has evidence of volume overload and recommend diuresis which was discussed with the coal grader. I feel ultrafiltration would be appropriate for this patient. Initially patient stated he does not want to be intubated if that is need to be done, however when she came to intensive care unit she was in agreement and that needs to be done. At this time her FiO2 at 70% and she seems to be comfortable. We will plan for ABG. I have lowered her FiO2 to 60%. I had long discussion with the family at the bedside and I told them her condition most likely would deteriorate and will need main mechanical invasive ventilation and patient agreed, however she is lethargic and in my opinion she does not completely understand the situation. Family also agreed they feel more comfortable if she is transferred to [facility] and discussed with primary team will discuss with ICU at [facility] if they will take patient meanwhile we will attempt to remove fluid with ultrafiltration. Cardiovascular: stable , however she is at risk her condition could deteriorate quickly. GI: Nutrition per dietary and GI prophylaxis per routine. Keep patient nothing by mouth. Heme: DVT prophylaxis per routine ID: Continue antibiotics and plan to de-escalation Renal; urine out put and renal funtion reviewed. Discussed with coal grader and his feeling was to transfer patient to [facility] since she had her transplant in the past he is appropriate. Discussed with primary team and they are working on transferring patient. Endorcine: blood glucose is monitored Lines: all lines checked and no evidence of infections Skin: skin care to prevent pressure ulcers per nursing routine care Thank you for the consultation and they suspect prognosis is poor. I spent 35 min of Critical Care time with this patient. It involved decision making of high complexity to assess, manipulate, and support vital organ system failure and/or to prevent further life threatening deterioration of the patient' s condition. The time involved in the performance of separately reportable procedures was not counted toward critical care time. <Remy Russell - Last Filed: 06/24/18 14:11> Date of Encounter: 06/24/18 Time of Encounter: 10:28 Assessment and Plan (1) Acute respiratory failure with hypoxia and hypercapnia Current Visit: Yes Status: Acute Acute hypoxic and hypercapnic respiratory failure Suspect this is mostly secondary to fluid overload in setting of end-stage renal disease vs. CAP The patient does have bilateral pleural effusions which are large on CXR, I do believe that these are primarily secondary to renal function UA shows gross proteinuria which was previously not present on exam Patient underwent thoracentesis which did demonstrate fluid which was transudative in nature The patient has required BiPAP in order to maintain oxygen saturation ABG 8/ - 7.22/75/82/31 on 3L NC 8/2 - 7.34/53/59/28/30 on BiPAP wih FiO2 32 Currently requiring 60-70% FiO2 to maintain SpO2 >92% Patient and family express willingness for intubation if needed Recommendations -Considering the patient's history of kidney transplant, transfer to [facility] is appropriate. This is the desire of the patient's family and the recommendation of nephrology, and we agree. Pending that transfer, our recommendations are as follows. -Aggressive fluid removal under nephrology guidance. The patient will have ultrafiltration, as diuresis alone is likely insufficient. Further, the patient' s urine output has not seemed to respond appropriately to diuresis thus far. -BiPAP as tolerate, will intubate if necessary -Duonebs as needed -ABG prior to discharge -Rate control for afib (2) Pleural effusion Current Visit: Yes Status: Acute Secondary to ESRD, see plan above (3) Atrial fibrillation with RVR Current Visit: Yes Status: Acute Atrial fibrillation with RVR This is apparently new to this patient, and occurred following thoracentesis Suspect respiratory status plays role, which is worsened by fluid overload Cardiology has consulted on the patient Recommendations: -Continue cardizem drip -Aggressive fluid removal -Lopressor IVP prn History of Present Illness Consult date: 06/24/18 Requesting physician: Stefania Noriega Reason for consult: dyspnea Chief complaint: Pulmonary edema History of present illness: Ms. Begum is a 72-year-old woman with history of kidney transplant approximately 7 years ago, COPD, hyperlipidemia, hypertension, CKD, hypothyroidism and bipolar depression who presented to [place] on June 21 with altered mental status. She is a patient at an [facility]. At that time she was found to have bilateral large pleural effusions and anasarca, and there was some concern for pneumonia in the left lower lobe. Apparently the patient was admitted to [facility] about one month ago at which time she had a complete white out of the left lung due to mucous plugging, required intubation , and had a therapeutic bronchoscopy. At the time of this admission, she has worsened respiratory failure and has spent a majority of her time in the hospital on BiPAP. Yesterday, the hospitalist team consultation to interventional radiology who did a right-sided thoracentesis, after which the patient developed atrial fibrillation with rapid ventricular response. The patient also became hemodynamically unstable and required for advised of albumin. Despite this, the patient's respiratory failure seemed to get worse overnight and has continually gotten worse over her stay. In fact, the patient has apparently required BiPAP to maintain adequate saturation at this time requiring FiO2's as high as 70% throughout the day. Today, the patient removed her BiPAP and desaturated immediately to approximate 70%. Per nephrology, transfer to [facility] for transplant services is most appropriate, however the primary team is concerned about respiratory status in the time pending transfer. Past Med Surg Social Fam HX - Past Medical History Medical history: COPD, hyperlipidemia, hypertension, renal disease, thyroid disease, other Additional medical history: kidney transplant, malignant neoplasm upper lobe lung Psychiatric history: anxiety, bipolar, depression - Past Surgical History Surgical History: transplant - Social History Smoking Status: Current every day smoker Smokeless Tobacco Status: No Alcohol use: none Drug use: none ROS unobtainable: due to mental status All Systems: The remainder of the systems were reviewed and are negative Review of Systems: Patient is unable to reliably answer review of systems question Physical Examination Vital Signs: Vital Signs, Last 4 Hours Temp Pulse Resp BP Pulse Ox 06/24/18 08:00 97.5 F L 112 20 113/81 93 06/24/18 07:27 19 90 Gen: Vitals noted. Patient appears moderately distressed off BiPAP HEENT: Normocephalic, atraumatic Neck: Supple. No adenopathy. Cardiac: RRR but tachycardic, no murmur, +S1/S2 Pulmonary: Diffuse wet crackles are noted anteriorly with potential rhonchi superimposed Abdomen: soft, nontender, no guarding Extremities: 2+ worse any edema that extends to at least mid calf, nontender calf, no cyanosis or clubbing Neuro: moves all extremities, no focal deficits. Alert, however orientation is challenging to assess due to respiratory status and inability to answer questions Results - Laboratory Findings CBC and BMP: 06/24/18 12:29 06/24/18 04:27 ABG ABG pH 7.34 pH Units (7.32-7.45) 06/22/18 04:12 ABG pCO2 53 mmHg (35-45) H 06/22/18 04:12 ABG pO2 59 mmHg (85-104) L 06/22/18 04:12 ABG O2 Saturation 88 % (95-98) L 06/22/18 04:12 PT/INR, D-dimer PT 10.7 Seconds (9.4-12.1) 06/22/18 06:32 Abnormal lab findings: Abnormal lab results RBC 2.89 M/mcL (3.82-4.97) L 06/24/18 04:27 Hgb 8.6 g/dL (11.5-15.4) L D 06/24/18 04:27 Hct 28.2 % (35.3-44.9) L 06/24/18 04:27 MCHC 30.5 g/dL (31.6-35.5) L 06/24/18 04:27 RDW 18.4 % (11.5-14.5) H 06/24/18 04:27 Lymphocytes # 0.2 K/mcL (0.6-4.6) L 06/24/18 04:27 Polychromasia 1+ (Not Present) A 06/24/18 04:27 Hypochromasia Present (Not Present) A 06/24/18 04:27 Basophilic Stippling 1+ (Not Present) A 06/21/18 13:11 Anisocytosis 1+ (Not Present) A 06/24/18 04:27 APTT 25.8 Seconds (26.0-36.0) L 06/22/18 06:32 ABG pCO2 53 mmHg (35-45) H 06/22/18 04:12 ABG pO2 59 mmHg (85-104) L 06/22/18 04:12 ABG HCO3 28 mEq/L (21-27) H 06/22/18 04:12 ABG Total CO2 30 mEq/L (20-26) H 06/22/18 04:12 ABG O2 Saturation 88 % (95-98) L 06/22/18 04:12 BUN 38 mg/dL (8-23) H 06/24/18 04:27 Creatinine 1.68 mg/dL (0.60-1.20) H 06/24/18 04:27 Est GFR ( Amer) 36 (> 60) L 06/24/18 04:27 Est GFR (Non-Af Amer) 30 (> 60) L 06/24/18 04:27 Glucose 120 mg/dL (70-105) H 06/24/18 04:27 POC Glucose 107 mg/dL (70-99) H 06/22/18 07:54 Calcium 8.3 mg/dL (8.6-10.3) L 06/24/18 04:27 Iron 44 mcg/dL (50-170) L 06/23/18 05:02 Transferrin 124 mg/dL (203-362) L 06/23/18 05:02 Ferritin 487 ng/mL (10-120) H 06/23/18 05:02 AST 12 Units/L (13-39) L 06/24/18 04:27 Serum Total Protein 5.3 g/dL (6.4-8.9) L 06/24/18 04:27 Globulin 1.6 g/dL (2.4-3.5) L 06/24/18 04:27 Albumin/Globulin Ratio 2.3 (1.1-2.2) H 06/24/18 04:27 Cholesterol 263 mg/dL (< 200) H 06/22/18 06:32 LDL Cholesterol, Calc 148 mg/dL (0-99) H 06/22/18 06:32 HDL Cholesterol 95 mg/dL (40-59) H 06/22/18 06:32 TSH 10.733 mcIU/mL (0.340-5.600) H 06/21/18 18:44 Urine Clarity Cloudy (Clear) A 06/21/18 13:16 Urine Protein >=1000 mg/dL (Neg-Trace) H 06/21/18 13:16 Urine Bilirubin Small (Negative) H 06/21/18 13:16 Urine Microscopic WBC 3-5 per hpf (0-3) H 06/21/18 13:16 Ur Squamous Epith Cells Many per lpf (None-Few) H 06/21/18 13:16 Pleural Appearance Hazy (Clear) A 06/23/18 09:52 - Clinical Findings Intake & Output: Intake & Output 06/23/18 06/24/18 06/24/18 23:59 07:59 15:59 Intake Total 587.0 / 587.0 150 / 150 Output Total 350 / 350 250 / 250 150 / 150 Balance 237.0 / 237.0 -100 / -100 -150 / -150
[2018-06-24] MEDS ORDERED: Naloxone 0.4 MG/ML INJ IVP PRN (11:01)
[2018-06-24] MEDS ORDERED: Acetaminophen 325 MG TABLET PO PRN (11:01)
[2018-06-24] MEDS ORDERED: hydrOXYzine pamoate 25 MG CAPSULE PO PRN (11:01)
[2018-06-24] MEDS ORDERED: Ipratropium/Albuterol Neb 3 ML IH SCH (12:00)
--- NOTE | 2018-06-24 13:28 | Discharge Summary ---
<Jerome Corrales R - Last Filed: 06/24/18 13:25> Orders not resulted at time of discharge: Pending orders 06/22/18 17:33 Cytology [PTH] Routine 06/23/18 04:00 Sodium, Urine [UCHEM] AM 0400 Urine Protein Creat Ratio [place] [UCHEM] AM 0400 06/23/18 05:02 Sirolimus (Rapamune) AM 0400 06/23/18 13:04 EKG [ECG 12 lead ECG] [ECG] Stat 06/23/18 15:10 EKG [ECG 12 lead ECG] [ECG] Stat 06/23/18 18:19 Respiratory Infection Panel [MOLMIC] Stat 06/24/18 12:21 ABG [Arterial Blood Gas] Stat 06/24/18 12:26 Hepatitis B Surface Antibody Stat Hepatitis B Surface Antigen Stat 06/24/18 12:29 H/H [Hemoglobin and Hematocrit] [HEME] Stat Date of Encounter: 06/24/18 Time of Encounter: 13:25 - Discharge Diagnosis (1) Pneumonia Priority: Primary Status: Acute Qualifiers: Pneumonia type: due to unspecified organism Laterality: left Lung location: lower lobe of lung Qualified Code(s): J18.1 - Lobar pneumonia, unspecified organism (2) Pleural effusion Priority: Secondary Status: Acute (3) Renal anasarca Priority: Secondary Status: Acute (4) Atrial fibrillation with RVR Priority: Secondary Status: Acute (5) Thyroid disease Priority: Secondary Status: Chronic (6) Altered mental status Priority: Secondary Status: Acute Qualifiers: Altered mental status type: somnolence Qualified Code(s): R40.0 - Somnolence (7) Transplanted kidney Priority: Secondary Status: Acute (8) HLD (hyperlipidemia) Priority: Secondary Status: Chronic Qualifiers: Hyperlipidemia type: pure hypercholesterolemia Qualified Code(s): E78.00 - Pure hypercholesterolemia, unspecified; E78.0 - Pure hypercholesterolemia (9) HTN (hypertension) Priority: Secondary Status: Chronic Qualifiers: Hypertension type: essential hypertension Qualified Code(s): I10 - Essential (primary) hypertension (10) Lung cancer Priority: Secondary Status: Chronic Qualifiers: Laterality: left Lung location: upper lobe of lung Qualified Code(s): C34.12 - Malignant neoplasm of upper lobe, left bronchus or lung Hospital course: Ms. Begum is a 72 year old female with PMH of CAD for s/p renal transplant about 7 years ago on immunosuppressive therapy, COPD, HTN, HLD, hypothyroidism, and lung cancer s/p lobectomy not on chemotherapy admitted to the hospital due to AMS on 06/21/18. She was fluid overload with bilateral pleural effusions, and found to have proteinuria, which was new compared to prior urinalysis. Chest x- ray showed bilateral pleural effusions and concern for pneumonia. She was started on Zosyn and vancomycin. She received a brain MRI in the ED showed mastoid effusions, however but the patient's symptoms upon improvement of AMS are not consistent with mastoiditis. Blood cultures have been negative 3 days. Gentle diuresis with Lasix did not result in much improvement of fluid overload. Her renal function is about at baseline with a creatinine of 1.68. She received a thoracentesis resulted in 1 L of fluid removed, but with only mild changes in her symptoms. She continued to require oxygen supplementation and BiPAP support, increasing FiO2 from 30% to 60% today. She is stable on BiPAP. Mental status has improved, but her volume status has not. ID was consult and recommended continuing broad-spectrum antibiotics at this time. Conversations with nephrology and the intensive care team resulted in the recommendation that she be transferred to [facility] for further care for concern of further decline and needing additional support due to her history of renal transplant. Nephrology plans for hemodialysis to remove some fluid prior to transfer. I spoke with the ICU team at [facility] and they have accepted the patient under their service. Discharge discussed with: patient, family - Time Spent with Patient Total time spent providing and/or coordinating discharge services: Greater than 30 minutes - Discharge Medications Home Medications: Aspirin 81 mg PO DAILY 09/13/15 [History] Cyclosporine, Modified [Neoral] 100 mg PO BID 09/13/15 [History] ARIPiprazole [Abilify] 10 mg PO DAILY 06/21/18 [History] Doxepin HCl 100 mg PO HS 06/21/18 [History] Escitalopram [Lexapro] 20 mg PO DAILY 06/21/18 [History] Levothyroxine [Synthroid] 25 mcg PO 0630 06/21/18 [History] Pravastatin Sodium [Pravachol] 20 mg PO HS 06/21/18 [History] Sirolimus [Rapamune] 1 mg PO DAILY 06/21/18 [History] Sulfamethoxazole/Trimeth DS [Bactrim Ds] 1 tab PO MOWEFR 06/21/18 [History] Trazodone HCl 300 mg PO HS 06/21/18 [History] amLODIPine [Norvasc] 5 mg PO DAILY 06/21/18 [History] hydrOXYzine HCl [Hydroxyzine HCl] 50 mg PO Q6H PRN 06/21/18 [History] Acetaminophen [Tylenol] 650 mg PO Q6HR PRN tablet 06/24/18 [Rx] Allergies/Adverse Reactions: 3 Allergy/AdvReac Type Severity Reaction Status Date / Time No Known Allergies Allergy Verified 05/12/18 08:29 Date of admission: 06/22/18 15:12 Primary care physician: Barney Urena MD Consults: 06/22/18 17:30 Consult to Interventional Radiology [CONS] Routine Consulting Provider: Radiology Interventional [place] Reason for Consult: large amount pleural effusion Call Completed: Yes 06/22/18 18:19 Consult to Occupational Therapy [CONS] Routine Comment: Evaluate, develop and implement POC Reason for Consult: discharge planning; Does patient have active BEDREST order?: No Is patient medically & hemodynamically stable?: Yes Consult to Physical Therapy [CONS] Routine Comment: Evaluate, develop and implement POC Reason for Consult: discharge planning; Does patient have active BEDREST order?: No Is patient medically & hemodynamically stable?: Yes 06/23/18 10:14 Consult to Infectious Diseases [CONS] Routine Consulting Provider: Infectious Disease [place] Reason for Consult: LLL Pneumonia Time Notified: 10:14 Call Completed: Yes 06/23/18 13:38 Consult to Cardiology [CONS] Routine Comment: Consulting Provider: Cardiology [place] Reason for Consult: New A Fib with RVR Call Completed: No 06/24/18 09:41 Consult to Critical Care [CONS] Routine Consulting Provider: Pulm Crit Care & Sleep Heather Reason for Consult: worsening fluid overload, PNA, proteinuria Time Notified: 09:41 Call Completed: Yes Discharging clinician: Jerome Corrales Anticipated date of discharge: 06/24/18 - Constitutional Vitals: Temp Pulse Resp BP Pulse Ox 98.8 F 125 20 121/80 97 06/24/18 12:00 06/24/18 12:00 06/24/18 12:00 06/24/18 12:00 06/24/18 12:00 - Other Additional findings: GEN: No acute distress, alert HEAD: Atraumatic, normocephalic EYES: Pupils symmetric, sclera white, conjunctiva pink HEART: irregularly irregular, normal S1 and S2, no murmurs LUNGS: Coarse rhonchi bilaterally, continues on BiPAP support ABD: Soft, nontender, nondistended, bowel sounds present : Patrick in place EXT: Pitting edema bilaterally up to the knee, pulses 2/4 NEURO: No focal deficits, cooperative with exam - Patient Status Disposition: Transfer Other Condition: Undetermined Functional capacity at discharge: bed bound Overall status at discharge: patient is not back to baseline - Discharge Instructions Follow Up With: Barney Urena MD [Primary Care Provider] - - VTE Documentation of Mechanical Device: Intermittent pneumatic compression device <Stefania Noriega - Last Filed: 06/24/18 14:15> Orders not resulted at time of discharge: Pending orders 06/22/18 17:33 Cytology [PTH] Routine 06/23/18 04:00 Sodium, Urine [UCHEM] AM 0400 Urine Protein Creat Ratio [place] [UCHEM] AM 0400 06/23/18 05:02 Sirolimus (Rapamune) AM 0400 06/23/18 13:04 EKG [ECG 12 lead ECG] [ECG] Stat 06/23/18 15:10 EKG [ECG 12 lead ECG] [ECG] Stat 06/23/18 18:19 Respiratory Infection Panel [MOLMIC] Stat 06/24/18 12:21 ABG [Arterial Blood Gas] Stat 06/24/18 12:26 Hepatitis B Surface Antibody Stat Hepatitis B Surface Antigen Stat Date of Encounter: 06/24/18 - Discharge Diagnosis (1) Lung cancer Status: Chronic Qualifiers: Laterality: left Lung location: upper lobe of lung Qualified Code(s): C34.12 - Malignant neoplasm of upper lobe, left bronchus or lung (2) Altered mental status Status: Acute Qualifiers: Altered mental status type: somnolence Qualified Code(s): R40.0 - Somnolence (3) Pleural effusion Status: Acute (4) HTN (hypertension) Status: Chronic Qualifiers: Hypertension type: essential hypertension Qualified Code(s): I10 - Essential (primary) hypertension (5) HLD (hyperlipidemia) Status: Chronic Qualifiers: Hyperlipidemia type: pure hypercholesterolemia Qualified Code(s): E78.00 - Pure hypercholesterolemia, unspecified; E78.0 - Pure hypercholesterolemia (6) Thyroid disease Status: Chronic (7) Pneumonia Status: Acute Qualifiers: Pneumonia type: due to unspecified organism Laterality: left Lung location: lower lobe of lung Qualified Code(s): J18.1 - Lobar pneumonia, unspecified organism (8) Transplanted kidney Status: Acute (9) Atrial fibrillation with RVR Status: Acute (10) Renal anasarca Status: Acute Hospital course: Ms. Begum is a 72 year old female - Time Spent with Patient Total time spent providing and/or coordinating discharge services: Date of admission: 06/22/18 15:12 Primary care physician: Barney Urena MD Consults: 06/22/18 17:30 Consult to Interventional Radiology [CONS] Routine Consulting Provider: Radiology Interventional [place] Reason for Consult: large amount pleural effusion Call Completed: Yes 06/22/18 18:19 Consult to Occupational Therapy [CONS] Routine Comment: Evaluate, develop and implement POC Reason for Consult: discharge planning; Does patient have active BEDREST order?: No Is patient medically & hemodynamically stable?: Yes Consult to Physical Therapy [CONS] Routine Comment: Evaluate, develop and implement POC Reason for Consult: discharge planning; Does patient have active BEDREST order?: No Is patient medically & hemodynamically stable?: Yes 06/23/18 10:14 Consult to Infectious Diseases [CONS] Routine Consulting Provider: Infectious Disease [place] Reason for Consult: LLL Pneumonia Time Notified: 10:14 Call Completed: Yes 06/23/18 13:38 Consult to Cardiology [CONS] Routine Comment: Consulting Provider: Cardiology [place] Reason for Consult: New A Fib with RVR Call Completed: No 06/24/18 09:41 Consult to Critical Care [CONS] Routine Consulting Provider: Pulm Crit Care & Sleep Heather Reason for Consult: worsening fluid overload, PNA, proteinuria Time Notified: 09:41 Call Completed: Yes - Constitutional Vitals: Temp Pulse Resp BP Pulse Ox 98.8 F 93 18 123/89 95 06/24/18 12:00 06/24/18 13:00 06/24/18 13:00 06/24/18 13:00 06/24/18 13:00 - Attending Attestation I have seen and examined this patient today. Have discussed with resident physician Dr Corrales regarding the further treatment/transfer plan. Agree with the documentation.
[2018-06-24 13:58] LABS: Hematocrit 30.1 % (35.3-44.9); Hemoglobin 9.3 g/dL (11.5-15.4)
[2018-06-24 14:19] VITALS: BP 118/79
[2018-06-24 14:22] LABS: ABG Base Excess 5 mEq/L (-2 to 3); ABG HCO3 32 mEq/L (21-27); ABG Oxygen Saturation 92 % (95-98); ABG PCO2 61 mmHg (35-45); ABG PH 7.33 pH Units (7.32-7.45); ABG PO2 71 mmHg (85-104); ABG TCO2 34 mEq/L (20-26); Blood Gas Modality ST; Blood Gas PEEP 8 cm H2O; Blood Gas VT 14 cc
[2018-06-24 14:54] LABS: Hepatitis B Surface Antigen Nonreactive (Nonreactive)
[2018-06-24] MEDS ORDERED: Piperacillin/Tazobactam 3.375 GM in 0.9 % Sodium Chloride Mini Bag 100 ML IVPB SCH (16:00)
[2018-06-24] MEDS ORDERED: *HR* Heparin 5,000 UNIT/ML VIAL SQ SCH (18:00)
[2018-06-24] MEDS ORDERED: CycloSPORINE (SandIMMUNE) 100 MG CAPSULE PO SCH (21:00)
[2018-06-25] MEDS ORDERED: Levothyroxine 25 MCG TABLET PO SCH (06:30)
[2018-06-25] MEDS ORDERED: Aspirin 81 MG TAB.CHEW PO SCH (09:00)
[2018-06-25] MEDS ORDERED: ARIPiprazole 10 MG TABLET PO SCH (09:00)
[2018-06-26 01:33] LABS: Hepatitis B Surface Antibody 1.19 mIU/mL
--- NOTE | 2018-06-26 08:51 | Electrocardiograph Report ---
[address] [place] [id number] Test Date: 2018-06-23 Pat Name: Bertha Begum Department: 112 Room: 10 Gender: F Staff Rn: LILIA : 1945 Requested By: Stefania Noriega Order Number: [id number] Reading MD: Prashant Lowe Measurements Intervals [place] Rate: 133 P: NM: 0 QRS: 49 QRSD: 106 T: 86 QT: 317 QTc: 395 Interpretive Statements ATRIAL FIBRILLATION WITH RAPID VENTRICULAR RESPONSE NONSPECIFIC ST-T CHANGES Electronically Signed On 06-26-2018 8:49:33 EDT by Prashant Lowe
--- NOTE | 2018-06-26 08:52 | Electrocardiograph Report ---
[address] [id number] Test Date: 2018-06-23 Pat Name: Bertha Begum Department: 112 Room: 10 Gender: F [employer]: : 1945 Requested By: Carlos Yusuf Order Number: [id number] Reading MD: Prashant Lowe Measurements Intervals [place] Rate: 130 P: ND: 0 QRS: 85 QRSD: 97 T: 97 QT: 327 QTc: 404 Interpretive Statements ATRIAL FIBRILLATION WITH RAPID VENTRICULAR RESPONSE WITH ABERRANT CONDUCTION OR VENTRICULAR PREMATURE COMPLEXES NONSPECIFIC ST & T-WAVE ABNORMALITY ABNORMAL RHYTHM ECG Electronically Signed On 06-26-2018 8:51:07 EDT by Prashant Lowe
== END 2018-06-24 15:20 | disposition other institution (70) | DRG 193 ==
LOC: 2ANU 12:55 → EMEROO 12:55 → 2ANU 15:33 → ICNU 06-24 13:19
PROVIDERS: ADMIT Internal Medicine; ATTEND Internal Medicine